=== PATIENT | male | born 1985 | race Caucasian/White ===

== ENCOUNTER 2020-11-14 23:15 | Inpatient (IN) | payer MEDICAID, SELFPAY ==
[2020-11-14 23:16] VITALS: BP 153/98; PULSE 108; RESP 18; TEMP 35.9; O2SAT 99; BMI 36.3
[2020-11-15 01:04] LABS: AST(SGOT) 11 U/L (15-37); Alanine Aminotransfer ALT/SGPT 18 U/L (16-61); Albumin, Serum 3.4 g/dL (3.2-5.0); Alkaline Phosphatase 104 U/L (45-117); Anion Gap 4 (5-15); BUN 12 mg/dL (7-18); BUN/Creat Ratio 14.8 RATIO (10-20); Calcium,Total 8.8 mg/dL (8.5-10.1); Chloride 109 mmol/L (98-107); Creatinine, Serum 0.81 mg/dL (0.70-1.30); EST Glomerular Filtration Rate 114 mL/min (>60); Est Glom Filt Rate - Afr Amer 137 mL/min (>60); Estimated Creatinine Clearance 145.17 ml/min; Globulin 3.5 g/dL (2.2-4.2); Glucose 109 mg/dL (74-106); Potassium 3.7 mmol/L (3.5-5.1); Protein, Total 6.9 g/dL (6.4-8.2); Sodium Level 139 mmol/L (136-145)
[2020-11-15 01:06] LABS: Amphetamine Urine VISTA POSITIVE (<1000 ng/mL); Barbiturate Urine VISTA NEGATIVE (< 200 ng/mL); Benzodiazepine Urine VISTA NEGATIVE (< 200 ng/mL); Cocaine Urine VISTA NEGATIVE (< 300 ng/mL); Ecstacy Urine VISTA NEGATIVE (< 500 ng/mL); Methadone Urine VISTA NEGATIVE (< 300 ng/mL); PCP Urine VISTA NEGATIVE (< 25 ng/mL); THC Urine VISTA POSITIVE (< 50 ng/mL); Vista UDS pH Range 7
--- NOTE | 2020-11-15 01:09 | ED.DCSUM_ITS ---
- ER Visit Summary Date of Service: 11/15/20 Chief Complaint: Requesting detox History of Present Illness: The patient is a 35 M presenting requesting detox. Patient uses fentanyl and methamphetamine. His last fentanyl use was 2 hours ago. He states he uses 2 to 3 g/day. He also uses methamphetamine last use 1 hour ago. He uses 3.5 g/day. He states he injects, snorts, and ingests these drugs. He has not been through detox in the past. He denies alcohol use. He also states that he does have suicidal and homicidal ideation without plan. Physical Examination: Vitals are stable. Patient is afebrile. Alert no acute distress. HEENT exam is unremarkable. Neck is supple. Lungs are clear and equal bilaterally. Heart is regular tachycardic Abdomen is soft nontender nondistended. Extremities are unremarkable. Skin is warm and dry. No focal neurologic deficit. Remainder of exam is unremarkable. Emergency Department Course and Treatment: Chemistries are unremarkable. Tox positive for amphetamine and cannabinoids. Alcohol negative. Will discuss with hospitalist for admission. Disposition: Admission Impression: Polysubstance abuse This note was generated with [employer] dictation software. It may contain incorrect words, spelling, and punctuation that were not noted in review of the chart prior to signing ED Disposition - Plan for ED Patient: Referrals: Arianna Segura PA [Primary Care Provider] -
--- NOTE | 2020-11-15 01:34 | PCM.HP.STD ---
Problem List (1) Acute opioid withdrawal syndrome Status: Acute (2) Methamphetamine intoxication Status: Acute (3) Opioid use disorder, severe, dependence Status: Chronic (4) Marijuana use, episodic Status: Chronic (5) Depression Status: Chronic History of Present Illness Date of Admission: 11/15/20 Chief Complaint: Polysubstance use, opioid withdrawal The patient is a 35 year old M with history of polysubstance use and dependence came to ER for detoxification. Patient uses 1 to 2 g of IV fentanyl and 2 to 3 g of methamphetamine by snorting, smoking and IV use. Patient was also heavily dependent on Percocet, heroine, crack cocaine, Xanax in the past. He started using opioids at the age of 13. [] Currently, patient having symptoms of withdrawal including tremors, shakiness anxiety attack. Patient also having auditory hallucination but denies visual or tactile sensation. Denies recent seizure. Patient also had episode of severe depression before coming with feeling of guilt and worthlessness about 3 hours before admission. He does not have suicidal plan. He had suicidal attempt about 5 to 6 years ago with overusing of IV heroin. Denies prior history of endocarditis, osteomyelitis, deep infection or abscess. Denies history of chronic hepatitis B, chronic otitis C, HIV or STIs. Past Medical History Past Medical History (Chronic Problems): Chronic Problems Opioid use disorder, severe, dependence (Chronic) Marijuana use, episodic (Chronic) Depression (Chronic) Allergies No Known Allergies Allergy (Verified 11/14/20 23:16) Home Medications: Ambulatory Orders Medication Instructions Recorded NK 11/14/20 Smoking Status: Current every day smoker Review of Systems Constitutional: Reports: Fever HEENT: Denies: Head Aches, Sinus Congestion, Sinus Drainage Cardiovascular: Denies: Chest Pain, Palpitations Respiratory: Denies: Cough, Shortness of breath at rest, Sputum production Gastrointestinal: Denies: Abdominal Pain, Nausea, Vomiting Genitourinary: Denies: Dysuria Musculoskeletal: Reports: Joint Pain, Leg Pain, Muscle pain. Denies: Joint Tenderness Skin: Denies: Rash, Wounds Neurological: Denies: Numbness, Tingling, Focal weakness Psychiatric: Denies: Anxiety, Depression, Homicidal Ideations, Suicidal Ideations Hematologic/ Lymphatic: Denies: Easy Bruising, Easy Bleeding VTE Information - Inpt Only VTE Present on Admission: No VTE Mechan Device Prophylaxis: None Reason prophylaxis not ordered:: Procedure Not Indicated Objective: General: Alert, Oriented x3, Cooperative, restless HEENT: Atraumatic, PERRLA, EOMI, Normocephalic Oral: No Gingival or Mucosal Lesions/ Ulcerations Neck: Supple, No JVD, Negative Carotid Bruits Lungs: Air entry equal in bilateral lung bases. No crepitation/rhonchi Cardiovascular: Regular rate, Regular Rhythm, Normal S1, Normal S2, No murmurs Abdomen: Bowel Sounds Present, Soft, Non Tender, Non-Distended : No renal angle tenderness. No suprapubic tenderness. Extremities: Needle jame over bilateral antecubital regions. No ankle edema, Capillary Refill Less than 3 Seconds Skin: No rashes, No breakdown Musculoskeletal: No Tenderness to Palpation of Joints or Extremities Neurological: Cranial nerves II-XII grossly intact, Deep Tendon Reflexes 2+/4 and Symmetrical, Neuro grossly intact Psych/Mental Status: Restless, ecstasy - Physical Exam Vitals/I&O's: Vital Signs Temp Pulse Resp BP Pulse Ox 96.7 F L 108 H 18 153/98 H 99 11/14/20 23:16 11/14/20 23:16 11/14/20 23:16 11/14/20 23:16 11/14/20 23:16 Oxygen Delivery Method Room Air Weight: 282 lb 9.6 oz Body Mass Index (BMI) 36.3 Laboratory Results 11/15/20 00:05: Sodium 139, Potassium 3.7, Chloride 109 H, Carbon Dioxide 26.0, Anion Gap 4 L, BUN 12, Creatinine 0.81, Estim Creat Clear Calc 145.17, Est GFR (MDRD) Af Amer 137, Est GFR (MDRD) Non-Af 114, BUN/Creatinine Ratio 14.8, Glucose 109 H, Calcium 8.8, Total Bilirubin 0.40, AST 11 L, ALT 18, Alkaline Phosphatase 104, Total Protein 6.9, Albumin 3.4, Globulin 3.5, Albumin/Globulin Ratio 1.0 11/15/20 00:05: Ethyl Alcohol 5.0 11/15/20 00:05: Urine Opiates Screen NEGATIVE, Urine Methadone Screen NEGATIVE, Ur Barbiturates Screen NEGATIVE, Ur Phencyclidine Scrn NEGATIVE, Ur Amphetamines Screen POSITIVE H, U Methamphetamin-MDMA NEGATIVE, U Benzodiazepines Scrn NEGATIVE, Urine Cocaine Screen NEGATIVE, U Cannabinoids Screen POSITIVE H, Ur Drug Screen Comment Assessment/Plan All Active Problems Acute opioid withdrawal syndrome (Acute) Methamphetamine intoxication (Acute) 1. Acute opioid withdrawal syndrome with history of chronic opioid use and dependence and tolerance: Patient is being admitted on [facility] floor. On buprenorphine order set including other medications ibuprofen, clonidine, dicyclomine, gabapentin, hydroxyzine, methocarbamol and trazodone as needed. 2. Methamphetamine intoxication: Supportive medications as mentioned above 3. Marijuana use 4. Past history of benzodiazepines, Xanax, crack cocaine 5. Chronic smoker, cigarette with nicotine dependence: On nicotine patch. VTE prophylaxis: Low risk early ambulation encouraged. Inpatient E&M: 75834 Init Hosp L3
[2020-11-15 02:17] VITALS: BP 141/87; PULSE 89; RESP 18; TEMP 35.9; O2SAT 99
[2020-11-15 02:30] VITALS: BMI 35.9
[2020-11-15 02:36] VITALS: BP 122/82; PULSE 67; RESP 16; TEMP 36.3; O2SAT 100
[2020-11-15 02:39] VITALS: BMI 35.9
[2020-11-15 03:56] LABS: Absolute Lymphocyte Count 2.28 X10^3/uL (0.83-4.51); Absolute Neutrophil Count 4.7 X10^3/uL (2.0-7.7); Basophil# 0.03 X10^3/uL; Basophil% 0.4 % (0-1); Eosinophil# 0.34 X10^3/uL; Eosinophils% 4.3 % (0-5); Hematocrit 42.9 % (40-54); Hemoglobin 14.6 g/dL (13.0-16.5); Lymphocyte # 2.28 X10^3/ul (4.0); Lymphocyte % 28.7 % (19-41); Mean Corpuscular Volume 85.1 fL (80-94); Monocyte# 0.56 X10^3/uL; NRBC Flagged by Analyzer 0 % (0-5); Neutrophil # 4.73 X10^3/uL (2.7-7.7); Neutrophil % 59.5 % (47-70); Platelet Count 220 K/mm3 (150-450); RBC Distribution Width CV 13.7 % (11.6-14.6); RBC Distribution Width SD 42.1 fl (35.1-43.9); Red Blood Count 5.04 M/mm3 (4.6-6.2)
[2020-11-15] MEDS: Lactated Ringers 1,000 ML 125 ML IV (03:56)
[2020-11-15 04:07] LABS: Differential Indicated SCAN CRITERIA MET
[2020-11-15 04:10] LABS: International Normalized Ratio 1.1; Prothrombin Time (Protime)PT. 13.9 SECONDS (11.7-14.9)
[2020-11-15 05:45] LABS: Mucous, Urine 0 SEEN /hpf (<or=2+); Squamous Epithelial Cells - UA 0 SEEN /hpf (0-5); White Blood Cells 0 SEEN /hpf (0-5)
[2020-11-15 05:46] LABS: Color, Urine Yellow (Yellow); Glucose, Dipstick Normal (Normal); Ketone-Dipstick Negative (Negative); Leukocyte Esterase-Dipstick Negative /ul (Negative); Nitrite-Dipstick Negative (Negative); Occult Blood-Urine Negative /ul (Negative); Protein-Dipstick 15 mg/dl (Negative); Specific Gravity, Urine 1.015 (1.002-1.030); Urine Bilirubin Dipstick Negative (Negative); Urine Clarity Turbid (Clear); Urine Urobilinogen 4 mg/dl (Normal)
[2020-11-15 06:23] LABS: Bacteria 1+ /hpf (None Seen)
[2020-11-15 06:25] LABS: Amorphous Sediment 4+; Red Blood Cells-Urine 0-5 SEEN /hpf (0-5)
[2020-11-15 06:29] VITALS: BP 132/82; PULSE 83; RESP 18; TEMP 36.6; O2SAT 97
[2020-11-15] MEDS: Dicyclomine 10 MG Capsule 20 MG PO (06:33)
[2020-11-15] MEDS: Methocarbamol 750 MG Tablet 1500 MG PO ×3 (06:33→22:04)
[2020-11-15] MEDS: Ibuprofen 600 MG Tablet PO ×2 (06:34→14:24)
[2020-11-15] MEDS: cloNIDine HCl 0.1 MG Tablet PO (06:34)
[2020-11-15] MEDS: hydrOXYzine PAM 25 MG Capsule 50 MG PO ×3 (06:34→22:04)
[2020-11-15] MEDS: Buprenorphine HCl 2 MG TAB.SUBL SL ×3 (06:36→22:04)
--- NOTE | 2020-11-15 07:44 | PN_ITS ---
Patient Problems: Active and Suspected Problems Acute opioid withdrawal syndrome (Acute) Methamphetamine intoxication (Acute) Subjective: Patient seen and examined. He was admitted for acute reported withdrawal and is on opioid withdrawal protocol with buprenorphine. He has no complaints today. Review of symptoms otherwise negative. He has remained hemodynamically stable. Vitals/I&O's: Vital Signs Temp Pulse Resp BP Pulse Ox 97.8 F 83 18 132/82 H 97 11/15/20 06:29 11/15/20 06:29 11/15/20 06:29 11/15/20 06:29 11/15/20 06:29 Oxygen Delivery Method Room Air Weight: 280 lb Body Mass Index (BMI) 35.9 General: Alert, Oriented x3, Cooperative HEENT: Atraumatic, PERRLA, EOMI, Normocephalic Neck: Supple, No JVD, Negative Carotid Bruits Lungs: Clear to auscultation, Normal air movement Cardiovascular: Regular rate, No murmurs Abdomen: Bowel Sounds Present, Soft, Non Tender Extremities: No edema, Capillary Refill Less than 3 Seconds Skin: No rashes, No breakdown Musculoskeletal: No Tenderness to Palpation of Joints or Extremities Neurological: Cranial nerves II-XII grossly intact Psych/Mental Status: Normal Affect, Appropriate Laboratory Results 11/15/20 00:00: Urine Color Yellow, Urine Clarity Turbid, Urine pH 8.0, Ur Specific [place] 1.015, Urine Protein 15 H, Urine Glucose (UA) Normal, Urine Ketones Negative, Urine Occult Blood Negative, Urine Nitrite Negative, Urine Bilirubin Negative, Urine Urobilinogen 4 H, Ur Leukocyte Esterase Negative, Urine RBC 0-5 SEEN, Urine WBC 0 SEEN, Ur Squamous Epith Cells 0 SEEN, Amorphous Sediment 4+, Urine Bacteria 1+, Urine Mucus 0 SEEN 11/15/20 00:05: Sodium 139, Potassium 3.7, Chloride 109 H, Carbon Dioxide 26.0, Anion Gap 4 L, BUN 12, Creatinine 0.81, Estim Creat Clear Calc 145.17, Est GFR (MDRD) Af Amer 137, Est GFR (MDRD) Non-Af 114, BUN/Creatinine Ratio 14.8, Glucose 109 H, Calcium 8.8, Total Bilirubin 0.40, AST 11 L, ALT 18, Alkaline Phosphatase 104, Total Protein 6.9, Albumin 3.4, Globulin 3.5, Albumin/Globulin Ratio 1.0 11/15/20 00:05: Ethyl Alcohol 5.0 11/15/20 00:05: Urine Opiates Screen NEGATIVE, Urine Methadone Screen NEGATIVE, Ur Barbiturates Screen NEGATIVE, Ur Phencyclidine Scrn NEGATIVE, Ur Amphetamines Screen POSITIVE H, U Methamphetamin-MDMA NEGATIVE, U Benzodiazepines Scrn NEGATIVE, Urine Cocaine Screen NEGATIVE, U Cannabinoids Screen POSITIVE H, Ur Drug Screen Comment 11/15/20 03:45: WBC 8.0, RBC 5.04, Hgb 14.6, Hct 42.9, MCV 85.1, MCH 29.0, MCHC 34.0, RDW Std Deviation 42.1, RDW Coeff of Camille 13.7, Plt Count 220, MPV 10.0, Immature Gran % (Auto) 0.100, Neut % (Auto) 59.5, Lymph % (Auto) 28.7, [place] % (Auto) 7.0, Eos % (Auto) 4.3, Baso % (Auto) 0.4, Absolute Neuts (auto) 4.7, Absolute Lymphs (auto) 2.28, Nucleated RBC % 0 11/15/20 03:45: PT 13.9, INR 1.1 Current Medications Acetaminophen (Acetaminophen 500 Mg Tablet) 500 mg PO Q4H PRN PRN PRN Reason: Temp > 100.4 F Al Hydroxide/Mg Hydroxide (Mag Hydrox/Al Hydrox/Simeth 30 Ml Udc) 30 ml PO Q6H PRN PRN PRN Reason: dyspesia Bisacodyl (Bisacodyl 10 Mg Suppository) 10 mg RC DAILY PRN PRN Reason: Constipation Buprenorphine HCl (Buprenorphine Hcl 2 Mg Tab.Subl) 4 mg SL Q8H INOCENTE; Taper Stop: 11/18/20 06:29 Last Admin: 11/15/20 06:36 Dose: 4 mg Documented by: Clonidine (Clonidine Hcl 0.1 Mg Tablet) 0.1 mg PO Q8H PRN PRN PRN Reason: RESTLESSNESS Last Admin: 11/15/20 06:34 Dose: 0.1 mg Documented by: Dicyclomine HCl (Dicyclomine 10 Mg Capsule) 20 mg PO Q6H PRN PRN PRN Reason: Abdominal Discomfort Last Admin: 11/15/20 06:33 Dose: 20 mg Documented by: Gabapentin (Gabapentin 300 Mg Capsule) 300 mg PO Q8H PRN PRN PRN Reason: moderate to severe anxiety Hydroxyzine Pamoate (Hydroxyzine Jeanna 25 Mg Capsule) 50 mg PO Q6H PRN PRN PRN Reason: mild anxiety Last Admin: 11/15/20 06:34 Dose: 50 mg Documented by: Sodium Chloride () 250 mls @ 15 mls/hr IV .[id number] PRN PRN Reason: Saline Flush Sodium Chloride () 250 mls @ 15 mls/hr IV .[id number] PRN PRN Reason: Additional IVPB Infusion Lactated Ringer's () 1,000 mls @ 125 mls/hr IV .Q8H INOCENTE Stop: 11/15/20 11:11 Last Admin: 11/15/20 03:56 Dose: 125 mls/hr Documented by: Ibuprofen (Ibuprofen 600 Mg Tablet) 600 mg PO Q8H PRN PRN PRN Reason: PAIN Last Admin: 11/15/20 06:34 Dose: 600 mg Documented by: Loperamide HCl (Loperamide 2 Mg Capsule) 2 mg PO Q4H PRN PRN PRN Reason: LOOSE STOOLS Methocarbamol (Methocarbamol 750 Mg Tablet) 1,500 mg PO Q6H PRN PRN PRN Reason: MUSCLE SPASM Last Admin: 11/15/20 06:33 Dose: 1,500 mg Documented by: Nicotine (Nicotine 21 Mg Patch) 21 mg TD DAILY [facility] Ondansetron HCl (Ondansetron 8 Mg Tablet) 8 mg PO Q8H PRN PRN PRN Reason: NAUSEA Senna (Senna Tablet) 2 tablet PO QHS PRN PRN PRN Reason: Constipation Sodium Chloride (0.9% Saline Lock 10 Ml Syringe) 10 - 40 ml IV UD PRN PRN Reason: SALINE FLUSH Trazodone HCl (Trazodone 100 Mg Tablet) 100 mg PO QHS PRN PRN PRN Reason: INSOMNIA STROKE Vital Signs/Narrative: Vital Signs Temp Pulse Resp BP Pulse Ox 11/15/20 06:29 97.8 F 83 18 132/82 H 97 Medical Necessity - Tobacco Use Smoking Status: Current every day smoker Tobacco Use: Cigarettes, - Assessment/Plan All Active Problems Acute opioid withdrawal syndrome (Acute) Methamphetamine intoxication (Acute) #Acute opioid withdrawal * on acute opiate withdrawal protocol with buprenorphine * monitor CINA score * #Nicotine dependence: counseled to quit. on nicotine patch 21mg daily DVT prophylaxis: low risk, encourage ambulation Inpatient E&M: 51014 Subs Hosp L2
--- NOTE | 2020-11-15 09:26 | CASEMGMT ---
JOSELINE called the pt navigator from [facility], she will come see pt this weekend. JAYRO Phan
[2020-11-15 09:59] VITALS: BP 118/82; PULSE 62; RESP 16; TEMP 36.5; O2SAT 97
[2020-11-15 15:05] VITALS: BP 107/72; PULSE 52; RESP 16; TEMP 36.9; O2SAT 98
[2020-11-15 20:00] VITALS: BP 119/72; PULSE 64; RESP 18; TEMP 36.9; O2SAT 99
[2020-11-15] MEDS: traZODone 100 MG Tablet PO (22:04)
[2020-11-16] MEDS: Ibuprofen 600 MG Tablet PO ×3 (03:20→22:17)
[2020-11-16] MEDS: cloNIDine HCl 0.1 MG Tablet PO (03:20)
[2020-11-16] MEDS: Gabapentin 300 MG Capsule PO (03:20)
[2020-11-16 03:23] VITALS: BP 111/74; PULSE 70; RESP 16; TEMP 36.6; O2SAT 96
[2020-11-16] MEDS: Buprenorphine HCl 2 MG TAB.SUBL SL ×3 (06:23→22:18)
[2020-11-16 08:42] VITALS: PULSE 70
--- NOTE | 2020-11-16 09:30 | PN_ITS ---
Patient Problems: Active and Suspected Problems Acute opioid withdrawal syndrome (Acute) Methamphetamine intoxication (Acute) Subjective: Patient seen and examined. He had no complaints and had an uneventful night. Review of systems otherwise negative. Vitals/I&O's: Vital Signs Temp Pulse Resp BP Pulse Ox 97.9 F 70 16 111/74 96 11/16/20 03:23 11/16/20 08:42 11/16/20 03:23 11/16/20 03:23 11/16/20 03:23 Oxygen Delivery Method Room Air Weight: 280 lb 0.005 oz Body Mass Index (BMI) 35.9 Intake and Output for Last 24 Hours 11/14/20 11/15/20 11/17/20 23:59 23:59 00:59 Intake Total 352.08 / 952.08 600 / 600 Balance 352.08 / 952.08 600 / 600 General: Alert, Oriented x3, Cooperative HEENT: Atraumatic, PERRLA, EOMI, Normocephalic Neck: Supple, No JVD, Negative Carotid Bruits Lungs: Clear to auscultation, Normal air movement Cardiovascular: Regular rate, No murmurs Abdomen: Bowel Sounds Present, Soft, Non Tender Extremities: No edema, Capillary Refill Less than 3 Seconds Skin: No rashes, No breakdown Musculoskeletal: No Tenderness to Palpation of Joints or Extremities Neurological: Cranial nerves II-XII grossly intact Psych/Mental Status: Normal Affect, Appropriate Current Medications Acetaminophen (Acetaminophen 500 Mg Tablet) 500 mg PO Q4H PRN PRN PRN Reason: Temp > 100.4 F Al Hydroxide/Mg Hydroxide (Mag Hydrox/Al Hydrox/Simeth 30 Ml Udc) 30 ml PO Q6H PRN PRN PRN Reason: dyspesia Bisacodyl (Bisacodyl 10 Mg Suppository) 10 mg RC DAILY PRN PRN Reason: Constipation Buprenorphine HCl (Buprenorphine Hcl 2 Mg Tab.Subl) 2 mg SL Q8H INOCENTE; Taper Stop: 11/18/20 06:29 Last Admin: 11/16/20 06:23 Dose: 2 mg Documented by: Clonidine (Clonidine Hcl 0.1 Mg Tablet) 0.1 mg PO Q8H PRN PRN PRN Reason: RESTLESSNESS Last Admin: 11/16/20 03:20 Dose: 0.1 mg Documented by: Dicyclomine HCl (Dicyclomine 10 Mg Capsule) 20 mg PO Q6H PRN PRN PRN Reason: Abdominal Discomfort Last Admin: 11/15/20 06:33 Dose: 20 mg Documented by: Gabapentin (Gabapentin 300 Mg Capsule) 300 mg PO Q8H PRN PRN PRN Reason: moderate to severe anxiety Last Admin: 11/16/20 03:20 Dose: 300 mg Documented by: Hydroxyzine Pamoate (Hydroxyzine Jeanna 25 Mg Capsule) 50 mg PO Q6H PRN PRN PRN Reason: mild anxiety Last Admin: 11/15/20 22:04 Dose: 50 mg Documented by: Sodium Chloride () 250 mls @ 15 mls/hr IV .[id number] PRN PRN Reason: Saline Flush Sodium Chloride () 250 mls @ 15 mls/hr IV .[id number] PRN PRN Reason: Additional IVPB Infusion Ibuprofen (Ibuprofen 600 Mg Tablet) 600 mg PO Q8H PRN PRN PRN Reason: PAIN Last Admin: 11/16/20 03:20 Dose: 600 mg Documented by: Loperamide HCl (Loperamide 2 Mg Capsule) 2 mg PO Q4H PRN PRN PRN Reason: LOOSE STOOLS Methocarbamol (Methocarbamol 750 Mg Tablet) 1,500 mg PO Q6H PRN PRN PRN Reason: MUSCLE SPASM Last Admin: 11/15/20 22:04 Dose: 1,500 mg Documented by: Nicotine (Nicotine 21 Mg Patch) 21 mg TD DAILY INOCENTE Last Admin: 11/15/20 18:33 Dose: 21 mg Documented by: Ondansetron HCl (Ondansetron 8 Mg Tablet) 8 mg PO Q8H PRN PRN PRN Reason: NAUSEA Senna (Senna Tablet) 2 tablet PO QHS PRN PRN PRN Reason: Constipation Sodium Chloride (0.9% Saline Lock 10 Ml Syringe) 10 - 40 ml IV UD PRN PRN Reason: SALINE FLUSH Trazodone HCl (Trazodone 100 Mg Tablet) 100 mg PO QHS PRN PRN PRN Reason: INSOMNIA Last Admin: 11/15/20 22:04 Dose: 100 mg Documented by: STROKE Vital Signs/Narrative: Vital Signs Pulse 11/16/20 08:42 70 Medical Necessity - Tobacco Use Smoking Status: Current every day smoker Tobacco Use: Cigarettes, - Assessment/Plan All Active Problems Acute opioid withdrawal syndrome (Acute) Methamphetamine intoxication (Acute) #Acute opioid withdrawal * on acute opiate withdrawal protocol with buprenorphine * monitor CINA score * #Nicotine dependence: counseled to quit. on nicotine patch 21mg daily DVT prophylaxis: low risk, encourage ambulation Inpatient E&M: 11958 Subs Hosp L2
[2020-11-16 11:45] VITALS: BP 92/46; PULSE 77; RESP 16; TEMP 36.9; O2SAT 99
[2020-11-16] MEDS: Senna Tablet 2 TABLET PO (18:13)
[2020-11-16 18:15] VITALS: BP 114/62; PULSE 73; RESP 16; TEMP 36.5; O2SAT 99
[2020-11-16] MEDS: traZODone 100 MG Tablet PO (22:17)
[2020-11-16] MEDS: hydrOXYzine PAM 25 MG Capsule 50 MG PO (23:34)
[2020-11-16 23:44] VITALS: BP 126/73; PULSE 81; RESP 16; TEMP 36.6; O2SAT 97
[2020-11-17] MEDS: Senna Tablet 2 TABLET PO (02:17)
[2020-11-17 05:45] VITALS: BP 112/62; PULSE 66; RESP 16; TEMP 37; O2SAT 99
[2020-11-17] MEDS: Buprenorphine HCl 2 MG TAB.SUBL SL (05:54)
--- NOTE | 2020-11-17 08:49 | DCINST_ITS ---
- Discharge Diagnoses Current Active Problems: Current Active and Chronic Problems Acute opioid withdrawal syndrome (Acute) Methamphetamine intoxication (Acute) Opioid use disorder, severe, dependence (Chronic) Marijuana use, episodic (Chronic) Depression (Chronic) You will use the following diet at home:: Regular Your food should be the consistency of: Regular Discharge Activity: Return to Normal Activity Weight Bearing Status: Full weight bearing Call your doctor if you observe: Fever of 101 or Higher, Shortness of breath, Dizziness, Fainting spells, Chest pain, Increased palpitations (irregular heartbeat), Uncontrolled pain Additional Instructions: Please follow-up with the [facility] program. Allergies/Adverse Reactions: Allergies No Known Allergies Allergy (Verified 11/14/20 23:16) Medications to take at Discharge NK 11/14/20 Primary Care Physician: Arianna Segura PA [Primary Care Provider] - Please follow up with your Primary Care Physician in: 2-4 weeks. Test Results: Test results from this visit will be discussed in further detail at your follow- up appointment, if applicable.
[2020-11-17 08:59] VITALS: BP 109/46; PULSE 61; RESP 18; TEMP 36.8; O2SAT 98
[2020-11-17] MEDS: Magnesium Hydroxide 30 ML UDC PO (09:01)
[2020-11-17] MEDS: Methocarbamol 750 MG Tablet 1500 MG PO (09:01)
[2020-11-17] MEDS: hydrOXYzine PAM 25 MG Capsule 50 MG PO (09:01)
[2020-11-17] MEDS: Ibuprofen 600 MG Tablet PO (09:01)
[2020-11-17] MEDS: cloNIDine HCl 0.1 MG Tablet PO (09:01)
[2020-11-17] MEDS: Dicyclomine 10 MG Capsule 20 MG PO (09:01)
--- NOTE | 2020-11-17 10:42 | PHA.DC.MR ---
Pharmacy Service has performed discharge medication reconciliation for this patient. The patient's discharge medication list was reviewed for discrepancies and discrepancies were resolved. Home Medications NK 11/14/20
--- NOTE | 2020-11-17 12:00 | CASEMGMT ---
Social Work Note SW received call from Jean at [facility] stating she will check in with pt once she arrives to [facility]. Jean states she will be in to [facility] later this afternoon. SW in to speak with pt. SW updated pt that Jean from [facility] will be in to see pt today to confirm discharge plans. SW informed pt that [facility] is the contracted services that see's the [facility] pt's while they are at [facility]. SW informed pt that this worker is not sure what time Jean will be in as she only told this worker later this afternoon. Pt states understanding, kept apologizing. SW to speak with Jean once she arrives to [facility]. Vidhya Hutchinson WEB ADMINISTRATOR, CONDUIT INSTALLER
--- NOTE | 2020-11-17 12:02 | NURSING ---
Vidhya SW now in talking with pt. pt agitated and requesting to speak with [facility] immediately.
--- NOTE | 2020-11-17 13:20 | DS.PCM_ITS ---
Discharge Date and Diagnosis - Problem List Patient Problems: Active and Suspected Problems Acute opioid withdrawal syndrome (Acute) Date of Admission: 11/15/20 Date of Discharge: 11/17/20 - Primary Discharge Diagnosis Acute Problems: Active Problems #1 acute opioid withdrawal admitted for medical stabilization. #2 methamphetamine use. - Secondary Discharge Diagnosis Chronic Problems: Chronic Problems Opioid use disorder, severe, dependence (Chronic) Marijuana use, episodic (Chronic) Depression (Chronic) Hospital Course and Treatment Operations: None Procedures: None Summary of Care Provided: Patient seen and examined on the day of discharge and appeared to be stable to be discharged home and follow-up with [facility]. Symptoms has been improving. His vital signs were stable. The patient is a 35 year old M presented to the emergency room requesting admission for acute opiate withdrawal for medical stabilization. Patient has been using fentanyl and methamphetamines. He was admitted to [facility] floor and started on acute opioid withdrawal protocol with tapering Subutex, as needed Bentyl, methocarbamol, Vistaril, Zofran, Imodium, Catapres and trazodone. His routine blood work was unremarkable. LFT was normal. Urine drug screen was positive for amphetamines and cannabinoids. Blood alcohol level was 5. With above-mentioned treatment, patient symptoms improved. He was evaluated by [facility] program and plan to follow-up with them as outpatient. Patient discharged home in a stable medical condition, plan to follow-up with [facility] program as scheduled, recommended from PCP in 2 to 4 weeks. Patient Problems: Active and Suspected Problems Acute opioid withdrawal syndrome (Acute) - Physical Exam Vitals/I&O's: Vital Signs Temp Pulse Resp BP Pulse Ox 98.3 F 61 18 109/46 L 98 11/17/20 08:59 11/17/20 08:59 11/17/20 08:59 11/17/20 08:59 11/17/20 08:59 Oxygen Delivery Method Room Air Weight: 280 lb 0.005 oz Body Mass Index (BMI) 35.9 Intake and Output for Last 24 Hours 11/15/20 11/16/20 11/17/20 22:59 23:59 23:59 Intake Total Balance General: Alert, Oriented x3, Cooperative, No apparent distress HEENT: Atraumatic, PERRLA, EOMI, Normocephalic Oral: Moist Mucosa, No Gingival or Mucosal Lesions/ Ulcerations Neck: Supple, No JVD, Negative Carotid Bruits, Trachea Midline, Thyroid Normal Size and Texture Lungs: Clear to auscultation, Normal air movement, No rhonchi, No wheeze, No rales Cardiovascular: Regular rate, Regular Rhythm, Normal S1, Normal S2, PMI Normal Abdomen: Bowel Sounds Present, Soft, Non Tender, Non-Distended, No Hepato- splenomegaly Extremities: No clubbing, No cyanosis, No edema Skin: No rashes, No breakdown Lymphatic: No Cervical, Supraclavicular, or Inguinal Adenopathy Neurological: Cranial nerves II-XII grossly intact, Neuro grossly intact Psych/Mental Status: Normal Affect, Appropriate Current Medications Acetaminophen (Acetaminophen 500 Mg Tablet) 500 mg PO Q4H PRN PRN PRN Reason: Temp > 100.4 F Al Hydroxide/Mg Hydroxide (Mag Hydrox/Al Hydrox/Simeth 30 Ml Udc) 30 ml PO Q6H PRN PRN PRN Reason: dyspesia Bisacodyl (Bisacodyl 10 Mg Suppository) 10 mg RC DAILY PRN PRN Reason: Constipation Buprenorphine HCl (Buprenorphine Hcl 2 Mg Tab.Subl) 2 mg SL Q12H INOCENTE; Taper Stop: 11/18/20 06:29 Last Admin: 11/17/20 05:54 Dose: 2 mg Documented by: Clonidine (Clonidine Hcl 0.1 Mg Tablet) 0.1 mg PO Q8H PRN PRN PRN Reason: RESTLESSNESS Last Admin: 11/17/20 09:01 Dose: 0.1 mg Documented by: Dicyclomine HCl (Dicyclomine 10 Mg Capsule) 20 mg PO Q6H PRN PRN PRN Reason: Abdominal Discomfort Last Admin: 11/17/20 09:01 Dose: 20 mg Documented by: Gabapentin (Gabapentin 300 Mg Capsule) 300 mg PO Q8H PRN PRN PRN Reason: moderate to severe anxiety Last Admin: 11/16/20 03:20 Dose: 300 mg Documented by: Hydroxyzine Pamoate (Hydroxyzine Jeanna 25 Mg Capsule) 50 mg PO Q6H PRN PRN PRN Reason: mild anxiety Last Admin: 11/17/20 09:01 Dose: 50 mg Documented by: Sodium Chloride () 250 mls @ 15 mls/hr IV .[id number] PRN PRN Reason: Saline Flush Sodium Chloride () 250 mls @ 15 mls/hr IV .[id number] PRN PRN Reason: Additional IVPB Infusion Ibuprofen (Ibuprofen 600 Mg Tablet) 600 mg PO Q8H PRN PRN PRN Reason: PAIN Last Admin: 11/17/20 09:01 Dose: 600 mg Documented by: Loperamide HCl (Loperamide 2 Mg Capsule) 2 mg PO Q4H PRN PRN PRN Reason: LOOSE STOOLS Methocarbamol (Methocarbamol 750 Mg Tablet) 1,500 mg PO Q6H PRN PRN PRN Reason: MUSCLE SPASM Last Admin: 11/17/20 09:01 Dose: 1,500 mg Documented by: Nicotine (Nicotine 21 Mg Patch) 21 mg TD DAILY INOCENTE Last Admin: 11/17/20 09:01 Dose: Not Given Documented by: Ondansetron HCl (Ondansetron 8 Mg Tablet) 8 mg PO Q8H PRN PRN PRN Reason: NAUSEA Senna (Senna Tablet) 2 tablet PO QHS PRN PRN PRN Reason: Constipation Last Admin: 11/17/20 02:17 Dose: 2 tablet Documented by: Sodium Chloride (0.9% Saline Lock 10 Ml Syringe) 10 - 40 ml IV UD PRN PRN Reason: SALINE FLUSH Trazodone HCl (Trazodone 100 Mg Tablet) 100 mg PO QHS PRN PRN PRN Reason: INSOMNIA Last Admin: 11/16/20 22:17 Dose: 100 mg Documented by: Discharge Activity: Return to Normal Activity Weight Bearing Status: Full weight bearing Call your doctor if you observe: Fever of 101 or Higher, Shortness of breath, Dizziness, Fainting spells, Chest pain, Increased palpitations (irregular heartbeat), Uncontrolled pain Home Medications: Medications to take at Discharge NK 11/14/20 Primary Care Physician: Arianna Segura, PA [Primary Care Provider] - Please follow up with your Primary Care Physician in: 2-4 weeks. Disposition: Home Minutes spent on discharge:: 27 Patient Condition:: Stable Medical Necessity - Tobacco Use Smoking Status: Current every day smoker Tobacco Use: Cigarettes, - Meaningful Use Info Meaningful Use Diagnoses (Choose all that apply): None applicable Inpatient E&M: 82184 [facility]
== END 2020-11-17 14:08 | disposition home or self-care (01) | DRG 773 ==
LOC: ED 11-15 00:56 → MS3 11-15 02:16
PROVIDERS: Admitting Provider Internal Medicine; Emergency Provider Emergency Medicine; PCP Physician Assistant Medical; Visit Provider Hospitalist
DX: F11.23 Opioid dependence with withdrawal (principal); R45.850 Homicidal ideations; R45.851 Suicidal ideations; F15.129 Other stimulant abuse with intoxication, unspecified; R44.0 Auditory hallucinations; F12.90 Cannabis use, unspecified, uncomplicated; F32.9 Major depressive disorder, single episode, unspecified; F17.210 Nicotine dependence, cigarettes, uncomplicated
CPT/HCPCS: 36415; 80053; 80307; 81001; 82077; 85025; 85610; 99283; 99406; J7120

== ENCOUNTER 2020-11-28 04:04 | Inpatient (IN) | payer MEDICAID, SELFPAY ==
[2020-11-28] VITALS (10 sets, daily range): BP systolic 102–128; BP diastolic 45–84; PULSE 57–97; RESP 12–18; TEMP 36.4–36.8; O2SAT 97–99; BMI 35.2; BMI 34.1; BMI 34.2
--- NOTE | 2020-11-28 04:22 | ED.VIS.GEN ---
History of Present Illness Chief Complaint: Substance Abuse Informant: Patient Narrative: She presents back to the emergency room this morning requesting admission for detox from meth and fentanyl. Patient was recently admitted here November 15 to the for the same. Plan at that time had been to go into residential treatment through [facility] at discharge. Apparently there was not a place available for him. Patient stated within 1 day of discharge she started using meth and fentanyl again. He has been in contact with [facility] and states they advised him to come back in today for admission and they should have a residential treatment facility for him to go to on Tuesday. Patient states that he has not shot up with his most recent drug use. Last use was approximately 2 hours prior to arrival. - Past Medical History (1) Anxiety Status: Chronic (2) Depression Status: Chronic Past Medical History - Allergies and Home Meds Allergies/Adverse Reactions: Allergies No Known Allergies Allergy (Verified 11/28/20 04:08) Primary Care Physician: Arianna Segura PA [Primary Care Provider] - Prior records reviewed: Yes Smoking Status: Current every day smoker Drugs: - - Fentanyl, methamphetamine Review of Systems General: Denies: Chills, Fever Eyes: Denies: Visual changes - bilaterally ENT: Denies: Bilateral ear pain Cardiovascular: Denies: Chest pain Respiratory: Denies: Dyspnea, Cough Gastrointestinal: Denies: Abdominal pain, Nausea, Vomiting, Diarrhea Genitourinary: Denies: Dysuria Musculoskeletal: Denies: Swelling, Extremity Pain Skin: Denies: Rash Neurological: Denies: Headache Hematologic: Denies: Easy bruising, Easy bleeding Allergy: Denies: Uticaria Physical Exam Vital Signs/Narrative: Vital Signs Temp Pulse Resp BP Pulse Ox 11/28/20 04:05 97.6 F L 96 18 128/84 H 99 Inital Vital Signs reviewed: Yes General: Well nourished, Well developed Head: Normocephalic ENT: Moist mucous membranes Neck: Supple Cardiovascular: Regular rate, Regular rhythm Respiratory: No distress, CTA bilaterally Abdomen: Soft, Nontender, Normal bowel sounds Extremities: Nontender Skin: Normal color Neurological: Alert, Oriented x3, Normal Strength, Normal Sensation Psychological: Normal affect Diagnostic/Tx/Re-eval Laboratory Results 11/28/20 11/28/20 11/28/20 04:15 04:30 04:30 Sodium 138 Potassium 3.5 Chloride 107 Carbon Dioxide 25.0 Anion Gap 6 BUN 10 Creatinine 1.07 Estim Creat Clear Calc 109.90 Est GFR (MDRD) Af Amer 100 Est GFR (MDRD) Non-Af 82 BUN/Creatinine Ratio 9.3 L Glucose 94 Calcium 8.7 Total Bilirubin 0.40 AST 10 L ALT 22 Alkaline Phosphatase 111 Total Protein 6.9 Albumin 3.3 Globulin 3.6 Albumin/Globulin Ratio 0.9 Urine Opiates Screen NEGATIVE Urine Methadone Screen NEGATIVE Ur Barbiturates Screen NEGATIVE Ur Phencyclidine Scrn NEGATIVE Ur Amphetamines Screen POSITIVE H U Methamphetamin-MDMA POSITIVE H U Benzodiazepines Scrn NEGATIVE Urine Cocaine Screen NEGATIVE U Cannabinoids Screen POSITIVE H Ur Drug Screen Comment Ethyl Alcohol 7.0 - Medical Decision Making Patient is agreed to the terms of the detox program. I will speak with hospitalist regarding admission. Patient reportedly has already been in contact with [facility] regarding placement in residential facility at time of discharge. ED Disposition - Plan for ED Patient: Disposition: Home or Assisted Living Diagnosis: Desire for detoxification Referrals: Arianna Segura, PA [Primary Care Provider] -
[2020-11-28 04:54] LABS: Amphetamine Urine VISTA POSITIVE (<1000 ng/mL); Barbiturate Urine VISTA NEGATIVE (< 200 ng/mL); Benzodiazepine Urine VISTA NEGATIVE (< 200 ng/mL); Cocaine Urine VISTA NEGATIVE (< 300 ng/mL); Ecstacy Urine VISTA POSITIVE (< 500 ng/mL); Methadone Urine VISTA NEGATIVE (< 300 ng/mL); PCP Urine VISTA NEGATIVE (< 25 ng/mL); THC Urine VISTA POSITIVE (< 50 ng/mL); Vista UDS pH Range 5
[2020-11-28 05:00] LABS: ALB/GLOB Ratio 0.9 RATIO (0.9-2.4); AST(SGOT) 10 U/L (15-37); Alanine Aminotransfer ALT/SGPT 22 U/L (16-61); Albumin, Serum 3.3 g/dL (3.2-5.0); Alkaline Phosphatase 111 U/L (45-117); Anion Gap 6 (5-15); BUN 10 mg/dL (7-18); BUN/Creat Ratio 9.3 RATIO (10-20); Calcium,Total 8.7 mg/dL (8.5-10.1); Chloride 107 mmol/L (98-107); Creatinine, Serum 1.07 mg/dL (0.70-1.30); EST Glomerular Filtration Rate 82 mL/min (>60); Est Glom Filt Rate - Afr Amer 100 mL/min (>60); Globulin 3.6 g/dL (2.2-4.2); Glucose 94 mg/dL (74-106); Potassium 3.5 mmol/L (3.5-5.1); Protein, Total 6.9 g/dL (6.4-8.2); Sodium Level 138 mmol/L (136-145)
--- NOTE | 2020-11-28 05:21 | PCM.HP.STD ---
Problem List (1) Acute opioid withdrawal syndrome Status: Acute (2) Obesity (BMI 30-39.9) Status: Chronic (3) Tobacco use Status: Chronic (4) History of hypertension Status: Chronic (5) History of radiofrequency ablation procedure for cardiac arrhythmia Status: Chronic (6) Anxiety Status: Chronic (7) Depression Status: Chronic Qualifiers: Depression Type: unspecified Qualified Code(s): F32.9 - Major depressive disorder, single episode, unspecified (8) Opioid use disorder, severe, dependence Status: Chronic History of Present Illness Date of Admission: 11/28/20 Chief Complaint: Acute Opiate Withdrawal The patient is a 35 y/o M w/ PMHx: Hx HTN, ? Cardiac arrhythmia, Anxiety and Depression, Obesity, Tobacco use, Polysubstance abuse (methamphetamine, fentanyl, cannabis) who presents to the [facility] ED on 11/28/20 with history of recent admission however he did not have a residential spot and immediately began using again, but discussed his status with [facility] who noted ability to have a slot for residential this coming Tuesday and recommended again return for detoxification treatment to the [facility] ED on 11/28/20 with history of usual 1-2 gm IV fentanyl as well as 2-3 gm methamphetamine use via snorting, smoking or IV route with most recent usage ~3-4 hours prior to ED presentation now with acute opiate withdrawal onset. He notes usual withdrawal symptoms include abdominal pain/cramping, generalized body aches and pains, rhinorrhea, piloerection, fatigue, restless leg, sweating, yawning. Patient interested in attaining clean status and admits he has purposely since his last discharge stayed away from [facility] so he would not purchase cheap needles. Work-up included T 97.6, heart 96, BP 120/84, respiratory rate 18, 99% on room air, unremarkable CMP, UDS with positive amphetamine, methamphetamine, cannabinoids, ethyl alcohol 7. Past Medical History Past Medical History (Chronic Problems): Chronic Problems Anxiety (Chronic) Obesity (BMI 30-39.9) (Chronic) Tobacco use (Chronic) History of hypertension (Chronic) History of radiofrequency ablation procedure for cardiac arrhythmia (Chronic) Opioid use disorder, severe, dependence (Chronic) Marijuana use, episodic (Chronic) Depression (Chronic) Allergies No Known Allergies Allergy (Verified 11/28/20 04:08) Home Medications: Ambulatory Orders Medication Instructions Recorded NK 11/14/20 Psychiatric History: Anxiety, Depression Lives: With Family - Patient currently lives with his mother. Smoking Status: Current every day smoker - Patient with current 1/2 pack/day cigarette tobacco usage as well as vaping since the age of 14. Tobacco Use: Cigarettes, Vapor Alcohol: Rare Drugs: - - Fentanyl, methamphetamine primarily noted to start, smoke and also inject. - *Family History Maternal History Items: High Cholesterol, Heart Disease, Hypertension Paternal History Items: Cancer - Father with a history of testicular cancer. Review of Systems Constitutional: Reports: Anorexia, Malaise, Fatigue. Denies: Chills, Fever, Weakness, Weight Change HEENT: Reports: Post Nasal Drip. Denies: Head Aches, Sinus Congestion, Sinus Drainage Cardiovascular: Denies: Chest Pain, Palpitations Respiratory: Denies: Cough, Shortness of Breath, Shortness of breath at rest, Shortness of breath upon exertion, Sputum production Gastrointestinal: Reports: Abdominal Pain, Nausea. Denies: Vomiting Genitourinary: Denies: Dysuria Musculoskeletal: Reports: Back Pain, Joint Pain, Leg Pain, Muscle pain. Denies: Joint Tenderness Skin: Denies: Rash, Wounds Neurological: Denies: Numbness, Tingling, Focal weakness Psychiatric: Reports: Anxiety, Depression. Denies: Homicidal Ideations, Suicidal Ideations Hematologic/ Lymphatic: Denies: Easy Bruising, Easy Bleeding VTE Information - Inpt Only VTE Present on Admission: No VTE Mechan Device Prophylaxis: None VTE Pharm Prophylaxis ordered?: No Reason prophylaxis not ordered:: Treatment Not Indicated Patient Problems: Active and Suspected Problems Desire for detoxification (Acute) Acute opioid withdrawal syndrome (Acute) Subjective: Patient laying in the ED bed, fatigued appearance, fast speech, mild restlessness despite fatigue, yawning frequently. Objective: Physical Examination: General: awake, alert, oriented x 3 and cooperative, laying in the ED bed, mildly restless, fatigued appearance, yawning frequently. Skin: normal color, turgor, no icterus, cyanosis. HEENT: AT/NC, EOMI, PERRLA, mildly dry MM, mild rhinorrhea noted, no carotid bruits or JVD noted. Lungs: CTA bilaterally, moderate effort, mild decrease BL bases, no rales, ronchi or wheezing. Heart: Mildly tachycardic with regular rhythm; no gallop, rub audible. Abdomen: soft, obese, mild generalized discomfort with palpation with no rebound or guarding, ND, moderately hyperactive BS, no HSM. Extremities: no cyanosis, clubbing, or edema. Neurological: patient awake, alert, oriented as noted; cognitive function intact; pupils equally reactive to light and accomodation; cranial nerves II-XII grossly normal, moving all 4 extremities, no focal deficits, strength preserved, mildly restless, moving frequently, talking fast despite fatigue. Psychiatric: affect appears fatigued but yet restless, talking fast, moving frequently in the bed, no acute evidence of depressive or anxiety feelings but does admit to chronic depression and anxiety. - Physical Exam Vitals/I&O's: Vital Signs Temp Pulse Resp BP Pulse Ox 97.6 F L 96 18 128/84 H 99 11/28/20 04:05 11/28/20 04:05 11/28/20 04:05 11/28/20 04:05 11/28/20 04:05 Oxygen Delivery Method Room Air Weight: 274 lb 0.553 oz Body Mass Index (BMI) 35.2 Laboratory Results 11/28/20 04:15: Urine Opiates Screen NEGATIVE, Urine Methadone Screen NEGATIVE, Ur Barbiturates Screen NEGATIVE, Ur Phencyclidine Scrn NEGATIVE, Ur Amphetamines Screen POSITIVE H, U Methamphetamin-MDMA POSITIVE H, U Benzodiazepines Scrn NEGATIVE, Urine Cocaine Screen NEGATIVE, U Cannabinoids Screen POSITIVE H, Ur Drug Screen Comment 11/28/20 04:30: Sodium 138, Potassium 3.5, Chloride 107, Carbon Dioxide 25.0, Anion Gap 6, BUN 10, Creatinine 1.07, Estim Creat Clear Calc 109.90, Est GFR (MDRD) Af Amer 100, Est GFR (MDRD) Non-Af 82, BUN/Creatinine Ratio 9.3 L, Glucose 94, Calcium 8.7, Total Bilirubin 0.40, AST 10 L, ALT 22, Alkaline Phosphatase 111, Total Protein 6.9, Albumin 3.3, Globulin 3.6, Albumin/Globulin Ratio 0.9 11/28/20 04:30: Ethyl Alcohol 7.0 Assessment/Plan All Active Problems Desire for detoxification (Acute) Acute opioid withdrawal syndrome (Acute) The patient is a 35 y/o M w/ PMHx: Hx HTN, ? Cardiac arrhythmia, Anxiety and Depression, Obesity, Tobacco use, Polysubstance abuse who presents to the [facility] ED on 11/28/20 with history of recent admission however he did not have a residential spot and immediately began using again, but discussed his status with [facility] who noted ability to have a slot for residential this coming Tuesday and recommended again return for detoxification treatment. 1. Acute Opiate Withdrawal: Will admit to [facility], routine labs including CBC, CMP, urine for drug screen obtained in the ED [], will initiate and continue on protocol with tapering course of Subutex, as needed tylenol, ibuprofen, bowel regimen, gabapentin, Bentyl, Vistaril, methocarbamol, clonidine, PRN nightly trazodone for insomnia, IV fluids, IV antiemetics. Once patient clinically improved and completion of taper nearing will plan consultation with case management for transition to next level of rehabilitation care. 2. Polysubstance Abuse, IVDA Hx: Will obtain HIV and Hepatitis panel. Patient currently not candidate for hep C treatment currently as needs to be clean, sober x 6 months, documented attendance NA or AA meetings, counseling and ongoing negative drug screens. 3. History of hypertension: Patient notes previously hypertensive which resolved following ablation for unclear exact etiology, possibly arrhythmia, BP is appropriate despite current presentation, will continue to monitor and add regimen if appropriate. As needed IV hydralazine. 4. Anxiety and depression: Patient notes significant especially anxiety history, not on any regimen, would benefit from continued close evaluation with [facility] with noted plan for residential following discharge. 5. Tobacco Abuse: Encouraged cessation, inpatient consultation per RT, NR if desired. 6. Obesity: Weight loss and lifestyle changes encouraged. 7. DVT Prophylaxis: Low risk, encourage ambulation. Inpatient E&M: 51268 Init Hosp L3
[2020-11-28] MEDS: Methocarbamol 750 MG Tablet 1500 MG PO ×2 (06:22→20:30)
[2020-11-28 09:22] LABS: HIV - WCH Non-Reactive (Nonreactive)
[2020-11-28] MEDS: Mag Hydrox/Al Hydrox/Simeth 30 ML UDC PO (09:58)
[2020-11-28] MEDS: Dicyclomine 10 MG Capsule 20 MG PO (09:58)
[2020-11-28] MEDS: Buprenorphine HCl 2 MG TAB.SUBL SL ×2 (12:22→17:23)
[2020-11-28 12:51] LABS: Hepatitis C Antibody Non-Reactive (Nonreactive)
--- NOTE | 2020-11-28 13:44 | ADDICTION ---
This senior technical writer met with PT to complete ASAM, MSE, DUDIT assessments and to plan for d/c. PT A+Ox4 and participated appropriately. All assessments completed, faxed to [facility] and placed in PT's chart. PT to direct admit to [facility] on 12/01 at 9am. [facility] to provide transportation.
--- NOTE | 2020-11-28 14:41 | PCM.HOSP.N ---
Hospitalist Note Patient was admitted early this morning and arrived to the floor at about 6 AM. Upon my evaluation he was sleeping soundly and had not yet received his first dose of phenobarb. Patient does have a history of polysubstance abuse including methamphetamines. fentanyl, and cannabis. He had a recent admission here from 11 15-11 17 for acute opiate withdrawal as well but states that a residential spot was not immediately available at discharge and he began using prior to being able to be admitted. He did call [facility] and discussed his status with them and they had documented availability for admission on 12/01/2020. Per case management he will be a direct admit to [facility] at 9 AM on this date. Problem list Acute opiate withdrawal -Subutex taper -As needed medications for symptomatic relief -Discharge 12/01/2020 at 9 AM to [facility] residential unit Polysubstance abuse -Patient does admit to history of IV drug use -HIV is nonreactive -Hep C antibody is negative -Tox screen on admission was positive for amphetamines and THC History of hypertension -Patient was not on any antihypertensives at admission -Blood pressures have been in goal range at the present time -We will continue to monitor Depression/anxiety -Was not on any antidepressants or anxiolytics on admission -We will receive counseling at [facility] -Would recommend further reevaluation after discharge for pharmacological assistance Tobacco abuse -Encourage cessation -Nicotine replacement as needed Obesity -BMI 34.2 -Recommend weight loss DVT prophylaxis -Low risk-early ambulation protocol CODE STATUS -Full code
[2020-11-28] MEDS: traZODone 100 MG Tablet PO (20:30)
[2020-11-28] MEDS: hydrOXYzine PAM 25 MG Capsule 50 MG PO (20:30)
[2020-11-29] MEDS: Buprenorphine HCl 2 MG TAB.SUBL SL ×3 (02:07→18:39)
[2020-11-29 04:00] VITALS: BP 97/45; PULSE 68; RESP 16; TEMP 36.4; O2SAT 98
[2020-11-29 07:07] LABS: HEPATITIS B SURFACE AG Negative (Negative); Hepatitis A AB, Total Negative (Negative); Hepatitis A IgM Antibody Negative (Negative); Hepatitis B Core AB IgM Negative (Negative); Hepatitis B Core Ab Total Negative (Negative); Hepatitis C Ab <0.1 s/co ratio (0.0-0.9)
[2020-11-29 08:41] VITALS: O2SAT 98
[2020-11-29 10:00] VITALS: BP 125/53; PULSE 58; RESP 18; TEMP 36.3; O2SAT 100
[2020-11-29] MEDS: Gabapentin 300 MG Capsule PO (10:05)
--- NOTE | 2020-11-29 10:24 | PCM.PN.HOSP ---
Patient Problems: Active and Suspected Problems Desire for detoxification (Acute) Acute opioid withdrawal syndrome (Acute) Subjective: Patient states he is feeling much better today overall. Voices understanding and knowledge of the plan for discharge to residential treatment on Tuesday at 9 AM. Asks for an extra pillow. Voices no other complaints. Vitals/I&O's: Vital Signs Temp Pulse Resp BP Pulse Ox 97.6 F L 68 16 97/45 L 98 11/29/20 04:00 11/29/20 04:00 11/29/20 04:00 11/29/20 04:00 11/29/20 08:41 Oxygen Delivery Method Room Air Weight: 120.7 kg Body Mass Index (BMI) 34.1 Intake and Output for Last 24 Hours 11/27/20 11/28/20 11/29/20 23:59 23:59 23:59 Intake Total 600 / 600 Balance 600 / 600 General: Alert, Oriented x3, Cooperative, No apparent distress, Well developed, Well nourished, - - White middle-aged male lying in bed, appears stated age, nontoxic HEENT: Atraumatic, Normocephalic Oral: Moist Mucosa Neck: Supple, Trachea Midline Lungs: Clear to auscultation, Normal air movement, No rhonchi, No wheeze, No rales Cardiovascular: Regular rate, Regular Rhythm, Normal S1, Normal S2, No murmurs, No Ectopic Activity, No rub noted, No Gallop Abdomen: Bowel Sounds Present, Soft, Non Tender, Non-Distended Extremities: No clubbing, No cyanosis, No edema, Capillary Refill Less than 3 Seconds, Peripheral Pulses Normal Neurological: Cranial nerves II-XII grossly intact, Neuro grossly intact Psych/Mental Status: Normal Affect, Appropriate Laboratory Results 11/28/20 04:30: Hepatitis C Antibody Non-Reactive Current Medications Acetaminophen (Acetaminophen 500 Mg Tablet) 500 mg PO Q4H PRN PRN PRN Reason: Temp > 100.4 F Al Hydroxide/Mg Hydroxide (Mag Hydrox/Al Hydrox/Simeth 30 Ml Udc) 30 ml PO Q6H PRN PRN PRN Reason: dyspesia Last Admin: 11/28/20 09:58 Dose: 30 ml Documented by: Albuterol Sulfate (Albuterol 2.5 Mg/3 Ml Vial.Neb.) 2.5 mg INHALATION Q2H PRN PRN PRN Reason: Dyspnea, wheezing Bisacodyl (Bisacodyl 10 Mg Suppository) 10 mg RC DAILY PRN PRN Reason: Constipation Buprenorphine HCl (Buprenorphine Hcl 2 Mg Tab.Subl) 2 mg SL Q8H INOCENTE; Taper Stop: 12/01/20 09:59 Last Admin: 11/29/20 09:56 Dose: 2 mg Documented by: Clonidine (Clonidine Hcl 0.1 Mg Tablet) 0.1 mg PO Q8H PRN PRN PRN Reason: RESTLESSNESS Dicyclomine HCl (Dicyclomine 10 Mg Capsule) 20 mg PO Q6H PRN PRN PRN Reason: Abdominal Discomfort Last Admin: 11/28/20 09:58 Dose: 20 mg Documented by: Gabapentin (Gabapentin 300 Mg Capsule) 300 mg PO Q8H PRN PRN PRN Reason: moderate to severe anxiety Last Admin: 11/29/20 10:05 Dose: 300 mg Documented by: Hydralazine HCl (Hydralazine 20 Mg/Ml Vial) 10 mg IV Q4H PRN PRN PRN Reason: SBP > 160 Hydroxyzine Pamoate (Hydroxyzine Jeanna 25 Mg Capsule) 50 mg PO Q6H PRN PRN PRN Reason: mild anxiety Last Admin: 11/28/20 20:30 Dose: 50 mg Documented by: Ibuprofen (Ibuprofen 600 Mg Tablet) 600 mg PO Q8H PRN PRN PRN Reason: PAIN Loperamide HCl (Loperamide 2 Mg Capsule) 2 mg PO Q4H PRN PRN PRN Reason: LOOSE STOOLS Methocarbamol (Methocarbamol 750 Mg Tablet) 1,500 mg PO Q6H PRN PRN PRN Reason: MUSCLE SPASM Last Admin: 11/28/20 20:30 Dose: 1,500 mg Documented by: Nicotine (Nicotine 21 Mg Patch) 21 mg TD DAILY [facility] Last Admin: 11/29/20 09:56 Dose: 21 mg Documented by: Ondansetron HCl (Ondansetron 8 Mg Tablet) 8 mg PO Q8H PRN PRN PRN Reason: NAUSEA Senna (Senna Tablet) 2 tablet PO QHS PRN PRN PRN Reason: Constipation Trazodone HCl (Trazodone 100 Mg Tablet) 100 mg PO QHS PRN PRN PRN Reason: INSOMNIA Last Admin: 11/28/20 20:30 Dose: 100 mg Documented by: STROKE Vital Signs/Narrative: Vital Signs Pulse Ox 11/29/20 08:41 98 Medical Necessity - Tobacco Use Smoking Status: Current every day smoker Tobacco Use: Cigarettes, Vapor Assessment/Plan All Active Problems Desire for detoxification (Acute) Acute opioid withdrawal syndrome (Acute) Acute opiate withdrawal -Subutex taper--> doses 2 mg every 8 hours -As needed medications for symptomatic relief -Discharge 12/01/2020 at 9 AM to [facility] Polysubstance abuse -Patient does admit to history of IV drug use -HIV is nonreactive -Hep C antibody is negative -Tox screen on admission was positive for amphetamines and THC History of hypertension -Patient has been normotensive since arrival and not on any antihypertensive medications -Unclear why this is in his medical history Depression/anxiety -Was not on any antidepressants or anxiolytics on admission -We will receive counseling at [facility] -Would recommend further reevaluation after discharge for pharmacological assistance Tobacco abuse -Encourage cessation -Nicotine replacement as needed Obesity -BMI 34.2 -Recommend weight loss DVT prophylaxis -Low risk-early ambulation protocol CODE STATUS -Full code Inpatient E&M: 08883 Subs Hosp L2
[2020-11-29 10:28] VITALS: PULSE 58
[2020-11-29 12:11] LABS: Hep B Surface Antibodies Non Reactive (.)
[2020-11-29 16:43] VITALS: BP 113/70; PULSE 64; RESP 16; TEMP 36.5; O2SAT 99
[2020-11-29 21:20] VITALS: BP 101/65; PULSE 68; RESP 18; TEMP 36.7; O2SAT 98
[2020-11-29] MEDS: traZODone 100 MG Tablet PO (21:25)
[2020-11-30 02:05] VITALS: BP 98/57; PULSE 54; RESP 18; TEMP 36.5; O2SAT 100
[2020-11-30] MEDS: Ondansetron 8 MG Tablet PO (02:07)
[2020-11-30] MEDS: Buprenorphine HCl 2 MG TAB.SUBL SL ×3 (02:07→21:57)
[2020-11-30] MEDS: hydrOXYzine PAM 25 MG Capsule 50 MG PO (02:07)
[2020-11-30] MEDS: Ibuprofen 600 MG Tablet PO (02:07)
[2020-11-30 07:24] VITALS: O2SAT 96
[2020-11-30] MEDS: Acetaminophen 500 MG Tablet PO (07:50)
[2020-11-30] MEDS: Gabapentin 300 MG Capsule PO ×2 (07:51→17:06)
--- NOTE | 2020-11-30 07:52 | NURSING ---
Awake and up to bathroom. Requesting something for hip pain. Tylenol given.
[2020-11-30 07:53] VITALS: BP 99/60; PULSE 50; RESP 16; TEMP 36.6; O2SAT 97
[2020-11-30 07:56] VITALS: PULSE 50
--- NOTE | 2020-11-30 11:05 | PCM.PN.HOSP ---
Patient Problems: Active and Suspected Problems Desire for detoxification (Acute) Acute opioid withdrawal syndrome (Acute) Subjective: States overall he is feeling much better. Admits that he is still little bit tired. Is pleased with this plan for discharge tomorrow morning to inpatient rehab with [facility]. Vitals/I&O's: Vital Signs Temp Pulse Resp BP Pulse Ox 97.8 F 50 L 16 99/60 97 11/30/20 07:53 11/30/20 07:56 11/30/20 07:53 11/30/20 07:53 11/30/20 07:53 Oxygen Delivery Method Room Air Weight: 120.7 kg Body Mass Index (BMI) 34.1 Intake and Output for Last 24 Hours 11/28/20 11/29/20 11/30/20 23:59 23:59 23:59 Intake Total 1959 400 / 400 Balance 1959 400 / 400 General: Alert, Oriented x3, Cooperative, No apparent distress, Well developed, Well nourished, - - Middle-aged white male, sitting up in bed, watching television, appears comfortable, nontoxic HEENT: Atraumatic, Normocephalic Oral: Moist Mucosa Neck: Supple, Trachea Midline Lungs: Clear to auscultation, Normal air movement, No rhonchi, No wheeze, No rales Cardiovascular: Regular rate, Regular Rhythm, Normal S1, Normal S2, No murmurs, No Ectopic Activity, No rub noted, No Gallop Abdomen: Bowel Sounds Present, Soft, Non Tender, Non-Distended Extremities: No clubbing, No cyanosis, No edema, Capillary Refill Less than 3 Seconds, Peripheral Pulses Normal Neurological: Cranial nerves II-XII grossly intact, Neuro grossly intact Psych/Mental Status: Normal Affect, Appropriate Laboratory Results 11/28/20 04:30: Hepatitis A IgM Ab Negative, Hepatitis A Ab Total Negative, Hep Bs Antigen Negative, Hep B Core Total Ab Negative, Hep B Core IgM Ab Negative, Hepatitis C Ab Confirm <0.1, Hep C Confirm Com 1 Comment Current Medications Acetaminophen (Acetaminophen 500 Mg Tablet) 500 mg PO Q4H PRN PRN PRN Reason: Temp > 100.4 F Last Admin: 11/30/20 07:50 Dose: 500 mg Documented by: Al Hydroxide/Mg Hydroxide (Mag Hydrox/Al Hydrox/Simeth 30 Ml Udc) 30 ml PO Q6H PRN PRN PRN Reason: dyspesia Last Admin: 11/28/20 09:58 Dose: 30 ml Documented by: Albuterol Sulfate (Albuterol 2.5 Mg/3 Ml Vial.Neb.) 2.5 mg INHALATION Q2H PRN PRN PRN Reason: Dyspnea, wheezing Bisacodyl (Bisacodyl 10 Mg Suppository) 10 mg RC DAILY PRN PRN Reason: Constipation Buprenorphine HCl (Buprenorphine Hcl 2 Mg Tab.Subl) 2 mg SL Q12H INOCENTE; Taper Stop: 12/01/20 09:59 Last Admin: 11/30/20 10:59 Dose: 2 mg Documented by: Clonidine (Clonidine Hcl 0.1 Mg Tablet) 0.1 mg PO Q8H PRN PRN PRN Reason: RESTLESSNESS Dicyclomine HCl (Dicyclomine 10 Mg Capsule) 20 mg PO Q6H PRN PRN PRN Reason: Abdominal Discomfort Last Admin: 11/28/20 09:58 Dose: 20 mg Documented by: Gabapentin (Gabapentin 300 Mg Capsule) 300 mg PO Q8H PRN PRN PRN Reason: moderate to severe anxiety Last Admin: 11/30/20 07:51 Dose: 300 mg Documented by: Hydralazine HCl (Hydralazine 20 Mg/Ml Vial) 10 mg IV Q4H PRN PRN PRN Reason: SBP > 160 Hydroxyzine Pamoate (Hydroxyzine Jeanna 25 Mg Capsule) 50 mg PO Q6H PRN PRN PRN Reason: mild anxiety Last Admin: 11/30/20 02:07 Dose: 50 mg Documented by: Ibuprofen (Ibuprofen 600 Mg Tablet) 600 mg PO Q8H PRN PRN PRN Reason: PAIN Last Admin: 11/30/20 02:07 Dose: 600 mg Documented by: Loperamide HCl (Loperamide 2 Mg Capsule) 2 mg PO Q4H PRN PRN PRN Reason: LOOSE STOOLS Methocarbamol (Methocarbamol 750 Mg Tablet) 1,500 mg PO Q6H PRN PRN PRN Reason: MUSCLE SPASM Last Admin: 11/28/20 20:30 Dose: 1,500 mg Documented by: Nicotine (Nicotine 21 Mg Patch) 21 mg TD DAILY [facility] Last Admin: 11/30/20 10:59 Dose: 21 mg Documented by: Ondansetron HCl (Ondansetron 8 Mg Tablet) 8 mg PO Q8H PRN PRN PRN Reason: NAUSEA Last Admin: 11/30/20 02:07 Dose: 8 mg Documented by: Senna (Senna Tablet) 2 tablet PO QHS PRN PRN PRN Reason: Constipation Trazodone HCl (Trazodone 100 Mg Tablet) 100 mg PO QHS PRN PRN PRN Reason: INSOMNIA Last Admin: 11/29/20 21:25 Dose: 100 mg Documented by: STROKE Vital Signs/Narrative: Vital Signs Temp Pulse Resp BP Pulse Ox 11/30/20 07:56 50 L 11/30/20 07:53 97.8 F 50 L 16 99/60 97 11/30/20 07:24 96 Medical Necessity - Tobacco Use Smoking Status: Current every day smoker Tobacco Use: Cigarettes, Vapor Assessment/Plan All Active Problems Desire for detoxification (Acute) Acute opioid withdrawal syndrome (Acute) Acute opiate withdrawal -Subutex taper--> doses 2 mg every 12 hours -As needed medications for symptomatic relief -Discharge 12/01/2020 at 9 AM to [facility] Polysubstance abuse -Patient does admit to history of IV drug use -HIV is nonreactive -Hep C antibody is negative -Hep A and hep B negative as well -Tox screen on admission was positive for amphetamines and THC History of hypertension -Patient has been normotensive since arrival and not on any antihypertensive medications -Unclear why this is in his medical history Depression/anxiety -Was not on any antidepressants or anxiolytics on admission -We will receive counseling at 180 -Would recommend further reevaluation after discharge for pharmacological assistance Tobacco abuse -Encourage cessation -Nicotine replacement as needed Obesity -BMI 34.2 -Recommend weight loss DVT prophylaxis -Low risk-early ambulation protocol CODE STATUS -Full code Disposition -Discharge 12/01/2020 at 9 AM to [facility] unit Inpatient E&M: 39385 Subs Hosp L2
[2020-11-30] MEDS: Methocarbamol 750 MG Tablet 1500 MG PO (17:05)
[2020-11-30 17:07] VITALS: BP 124/72; PULSE 73; RESP 20; TEMP 36.7; O2SAT 100
[2020-11-30 21:55] VITALS: BP 116/64; PULSE 94; RESP 18; TEMP 36.6; O2SAT 97
[2020-11-30] MEDS: traZODone 100 MG Tablet PO (21:57)
[2020-12-01 03:55] VITALS: BP 113/64; PULSE 58; RESP 18; TEMP 36.6; O2SAT 98
[2020-12-01 07:33] VITALS: BP 109/71; PULSE 58; RESP 16; TEMP 36.6; O2SAT 97
[2020-12-01 07:37] VITALS: O2SAT 97
--- NOTE | 2020-12-01 07:50 | PCM.DC ---
- Discharge Diagnoses Current Active Problems: Current Active and Chronic Problems Anxiety (Chronic) Desire for detoxification (Acute) Obesity (BMI 30-39.9) (Chronic) Tobacco use (Chronic) History of hypertension (Chronic) History of radiofrequency ablation procedure for cardiac arrhythmia (Chronic) Acute opioid withdrawal syndrome (Acute) Opioid use disorder, severe, dependence (Chronic) Depression (Chronic) Reason(s) for Visit for Discharge Instructions: Acute opiate withdrawal You will use the following diet at home:: Regular Your food should be the consistency of: Regular Your liquids should be the consistency of: Regular/Thin Discharge Activity: Return to Normal Activity Additional Instructions: You are strongly advised to continue to avoid use of opioids. You are also advised to stop smoking. Follow-up with your inpatient drug rehab program as scheduled. Allergies/Adverse Reactions: Allergies No Known Allergies Allergy (Verified 11/28/20 04:08) Medications to take at Discharge NK 11/14/20 Primary Care Physician: Arianna Segura, PA [Primary Care Provider] - Please follow up with your Primary Care Physician in: within 1-2 weeks Test Results: Test results from this visit will be discussed in further detail at your follow-up appointment, if applicable. Proposed Discharge Date: 12/01/20
--- NOTE | 2020-12-01 07:52 | DS.PCM_ITS ---
Discharge Date and Diagnosis - Problem List Patient Problems: Active and Suspected Problems Desire for detoxification (Acute) Acute opioid withdrawal syndrome (Acute) Date of Admission: 11/28/20 Date of Discharge: 12/01/20 - Primary Discharge Diagnosis Acute Problems: Active Problems Acute opioid withdrawal Polysubstance use disorder - Secondary Discharge Diagnosis Chronic Problems: Chronic Problems Anxiety (Chronic) Obesity (BMI 30-39.9) (Chronic) Tobacco use (Chronic) History of radiofrequency ablation procedure for cardiac arrhythmia (Chronic) Opioid use disorder, severe, dependence (Chronic) Marijuana use, episodic (Chronic) Depression (Chronic) Hospital Course and Treatment None Operations: None Procedures: None Summary of Care Provided: The patient is a 35 year old M medical history of polysubstance use, anxiety/depression who presented for medical stabilization from opioid. Patient admits to using fentanyl and cannabinoids. He used 1-2 g of IV fentanyl as well as 2-3 g of methamphetamine via snorting, smoking via IV route. Last used 2 to 3 hours prior to admission. She was admitted to the [facility] floor and managed on the opiate withdrawal protocol with no acute events. He will follow-up with the [facility] inpatient program as scheduled. Patient Problems: Active and Suspected Problems Desire for detoxification (Acute) Acute opioid withdrawal syndrome (Acute) Subjective: On the day of discharge, patient was seen and examined. Objective: Physical exam: General: Alert, Oriented x3, Cooperative, No apparent distress, Well developed, Well nourished, HEENT: Atraumatic, Normocephalic Oral: Moist Mucosa Neck: Supple, Trachea Midline Lungs: Clear to auscultation, Normal air movement, No rhonchi, No wheeze, No rales Cardiovascular: Regular rate, Regular Rhythm, Normal S1, Normal S2, No murmurs, No Ectopic Activity, No rub noted, No Gallop Abdomen: Bowel Sounds Present, Soft, Non Tender, Non-Distended Extremities: No clubbing, No cyanosis, No edema, Capillary Refill Less than 3 Seconds, Peripheral Pulses Normal Neurological: Cranial nerves II-XII grossly intact, Neuro grossly intact Psych/Mental Status: Normal Affect, Appropriate - Physical Exam Vitals/I&O's: Vital Signs Temp Pulse Resp BP Pulse Ox 97.8 F 58 L 16 109/71 97 12/01/20 07:33 12/01/20 07:33 12/01/20 07:33 12/01/20 07:33 12/01/20 07:37 Oxygen Delivery Method Room Air Weight: 120.7 kg Body Mass Index (BMI) 34.1 Intake and Output for Last 24 Hours 11/29/20 11/30/20 12/01/20 23:59 23:59 23:59 Intake Total 1959 1600 / 1600 300 / 300 Balance 1959 1600 / 1600 300 / 300 Current Medications Acetaminophen (Acetaminophen 500 Mg Tablet) 500 mg PO Q4H PRN PRN PRN Reason: Temp > 100.4 F Last Admin: 11/30/20 07:50 Dose: 500 mg Documented by: Al Hydroxide/Mg Hydroxide (Mag Hydrox/Al Hydrox/Simeth 30 Ml Udc) 30 ml PO Q6H PRN PRN PRN Reason: dyspesia Last Admin: 11/28/20 09:58 Dose: 30 ml Documented by: Albuterol Sulfate (Albuterol 2.5 Mg/3 Ml Vial.Neb.) 2.5 mg INHALATION Q2H PRN PRN PRN Reason: Dyspnea, wheezing Bisacodyl (Bisacodyl 10 Mg Suppository) 10 mg RC DAILY PRN PRN Reason: Constipation Buprenorphine HCl (Buprenorphine Hcl 2 Mg Tab.Subl) 2 mg SL Q12H INOCENTE; Taper Stop: 12/01/20 09:59 Last Admin: 11/30/20 21:57 Dose: 2 mg Documented by: Clonidine (Clonidine Hcl 0.1 Mg Tablet) 0.1 mg PO Q8H PRN PRN PRN Reason: RESTLESSNESS Dicyclomine HCl (Dicyclomine 10 Mg Capsule) 20 mg PO Q6H PRN PRN PRN Reason: Abdominal Discomfort Last Admin: 11/28/20 09:58 Dose: 20 mg Documented by: Gabapentin (Gabapentin 300 Mg Capsule) 300 mg PO Q8H PRN PRN PRN Reason: moderate to severe anxiety Last Admin: 11/30/20 17:06 Dose: 300 mg Documented by: Hydralazine HCl (Hydralazine 20 Mg/Ml Vial) 10 mg IV Q4H PRN PRN PRN Reason: SBP > 160 Hydroxyzine Pamoate (Hydroxyzine Jeanna 25 Mg Capsule) 50 mg PO Q6H PRN PRN PRN Reason: mild anxiety Last Admin: 11/30/20 02:07 Dose: 50 mg Documented by: Ibuprofen (Ibuprofen 600 Mg Tablet) 600 mg PO Q8H PRN PRN PRN Reason: PAIN Last Admin: 11/30/20 02:07 Dose: 600 mg Documented by: Loperamide HCl (Loperamide 2 Mg Capsule) 2 mg PO Q4H PRN PRN PRN Reason: LOOSE STOOLS Methocarbamol (Methocarbamol 750 Mg Tablet) 1,500 mg PO Q6H PRN PRN PRN Reason: MUSCLE SPASM Last Admin: 11/30/20 17:05 Dose: 1,500 mg Documented by: Nicotine (Nicotine 21 Mg Patch) 21 mg TD DAILY IN[facility] Last Admin: 11/30/20 10:59 Dose: 21 mg Documented by: Ondansetron HCl (Ondansetron 8 Mg Tablet) 8 mg PO Q8H PRN PRN PRN Reason: NAUSEA Last Admin: 11/30/20 02:07 Dose: 8 mg Documented by: Senna (Senna Tablet) 2 tablet PO QHS PRN PRN PRN Reason: Constipation Trazodone HCl (Trazodone 100 Mg Tablet) 100 mg PO QHS PRN PRN PRN Reason: INSOMNIA Last Admin: 11/30/20 21:57 Dose: 100 mg Documented by: Discharge Diet: No Restrictions Discharge Activity: Return to Normal Activity Home Medications: Medications to take at Discharge NK 11/14/20 Primary Care Physician: Arianna Segura, PA [Primary Care Provider] - Please follow up with your Primary Care Physician in: within 1-2 weeks Disposition: Home Minutes spent on discharge:: 25 Patient Condition:: Stable Medical Necessity - Tobacco Use Smoking Status: Current every day smoker Tobacco Use: Cigarettes, Vapor Meaningful Use Info Meaningful Use Diagnoses (Choose all that apply): None applicable Inpatient E&M: 67670 Disch Hosp
== END 2020-12-01 09:08 | disposition home or self-care (01) | DRG 773 ==
LOC: ED 05:16 → MS3 05:36
PROVIDERS: Internal Medicine; Admitting Provider Family Medicine; Emergency Provider Emergency Medicine; PCP Physician Assistant Medical; Visit Provider Internal Medicine
DX: F11.23 Opioid dependence with withdrawal (principal); F15.10 Other stimulant abuse, uncomplicated; F12.10 Cannabis abuse, uncomplicated; F32.9 Major depressive disorder, single episode, unspecified; F41.9 Anxiety disorder, unspecified; I10 Essential (primary) hypertension; E66.9 Obesity, unspecified; Z68.35 Body mass index [BMI] 35.0-35.9, adult; F17.210 Nicotine dependence, cigarettes, uncomplicated
CPT/HCPCS: 36415; 80053; 80307; 82077; 86703; 86704; 86705; 86706; 86708; 86709; 86803; 87340; 99283; 99406

== ENCOUNTER 2021-03-02 22:04 | Inpatient (IN) | payer MEDICAID, SELFPAY ==
[2020-11-28 06:04] VITALS: BMI 34.1
[2021-03-02 22:05] VITALS: BP 119/71; PULSE 83; RESP 18; TEMP 36.6; O2SAT 98; BMI 31.9
[2021-03-02 23:16] LABS: Amphetamine Urine VISTA POSITIVE (<1000 ng/mL); Barbiturate Urine VISTA NEGATIVE (< 200 ng/mL); Benzodiazepine Urine VISTA NEGATIVE (< 200 ng/mL); Cocaine Urine VISTA NEGATIVE (< 300 ng/mL); Ecstacy Urine VISTA NEGATIVE (< 500 ng/mL); Methadone Urine VISTA NEGATIVE (< 300 ng/mL); PCP Urine VISTA NEGATIVE (< 25 ng/mL); THC Urine VISTA POSITIVE (< 50 ng/mL); Vista UDS pH Range 5
[2021-03-03 00:40] VITALS: BP 116/76; PULSE 58; RESP 16; O2SAT 98
--- NOTE | 2021-03-03 00:43 | EDS_ITS ---
HPI History of Present Illness Chief Complaint: Substance Abuse Informant: patient Onset/Context/Timing Onset: Today Context: Gradual Onset Timing: Continuous Current Severity: Moderate Maximum Severity: Moderate Narrative Narrative: Patient is a 36-year-old male presents to the emergency department requesting detox. The patient states that he abuses both fentanyl and methamphetamines. He injects, snorts, or smokes. He last used earlier today. He states that he went through detox before and was able to be clean for 3 years. He states that he still has desire to get clean. He denies any history of hepatitis. He denies any fever or chills. His last use was today. Prior similar symptoms: Yes [facility] Medical History Anxiety Chronic pain Smoker Substance abuse Home Medications NK 11/14/20 [History Last Taken Unknown] Allergy/AdvReac Type Severity Reaction Status Date / Time No Known Allergies Allergy Verified 11/28/20 04:08 Social History Smoking Status: Heavy Smoker (>10/day) ROS ROS ED Constitutional Constitutional ED: Denies chills or fever(s) Eyes Eyes: Denies blurry vision or change in vision ENT ENT ED: Denies ear pain or sore throat Cardiovascular Cardiovascular: Denies chest pain or palpitations Respiratory/Chest Respiratory/Chest: Denies cough, dyspnea or dyspnea on exertion Gastrointestinal Gastrointestinal: Denies abdominal pain, nausea or vomiting Genitourinary Genitourinary ED: Denies dysuria or urinary frequency Musculoskeletal Musculoskeletal: Denies arthralgias or myalgias Integumentary Denies rash Neurologic Neurologic: Denies headache(s) or paresthesias Psychiatric Psychiatric: Denies anxiety or depression Endocrine Endocrinology: Denies polydipsia or polyuria Allergic/Immunologic Allergic/Immunologic ED: Denies urticaria EXAM Physical Exam Const Vital Signs: 03/02/21 22:05 03/03/21 00:40 Temperature 97.9 F Temperature Source Temporal Pulse Rate 83 58 L Respiratory Rate 18 16 Blood Pressure 119/71 116/76 Blood Pressure Mean 87 89 Pulse Ox 98 98 Oxygen Delivery Method Room Air Positive well nourished and well developed General Appearance ED: well developed HEENT Reports normocephalic, head/scalp atraumatic and moist mucous membranes Eyes PERRL and EOMs intact bilaterally Neck no lymphadenopathy and supple General: Negative for tenderness Chest Wall inspection of chest normal Resp normal respiratory effort and clear to auscultation bilaterally Cardio regular rate, regular rhythm and no murmurs GI normal to inspection, nondistended, normoactive bowel sounds Palpation: Negative for tender, guarding or rebound tenderness present Back/Spine no CVA tenderness Cervical Spine: Negative for cervical spine tenderness Thoracic Spine / Upper Back: Negative for thoracic spinal tenderness Extremity normal to inspection General Extremety ED: Negative for tenderness Neuro oriented x3 and CN's II-XII intact bilaterally Neuro Narrative: No focal deficits appreciated. Sensorium / Orientation: alert Psych mental status grossly normal Skin no rashes or lesions noted, no wounds and skin turgor normal MDM MDM MDM Narrative Medical decision making narrative: Patient presents requesting detox for f entanyl and amphetamines. He denies fever chills. Metabolic work-up was pursued. The patient is discussed with the hospitalist for admission. Impression 1. Opiate dependence and abuse Lab Data Attestation: I reviewed the patient's lab results. Labs: Laboratory Results - last 24 hr 03/02/21 22:45 Urine Opiates Screen NEGATIVE Urine Methadone Screen NEGATIVE Ur Barbiturates Screen NEGATIVE Ur Phencyclidine Scrn NEGATIVE Ur Amphetamines Screen POSITIVE H U Methamphetamin-MDMA NEGATIVE U Benzodiazepines Scrn NEGATIVE Urine Cocaine Screen NEGATIVE U Cannabinoids Screen POSITIVE H Ur Drug Screen Comment Discharge Plan Triage Chief Complaint: Substance Abuse ED Provider: Dariel Arias Dx/Rx/DC Orders Prescriptions: No Action NK RF: 0 Primary Care Provider: Arianna Segura
--- NOTE | 2021-03-03 00:58 | HP.PCM_ITS ---
HPI - General HPI Narrative ENZO HIGUERA, is a 36 M who presents to the emergency room requesting opiate withdrawal detoxification. Patient states he last went through our detox program 3 months ago but the patient failed to follow-up and outpatient care due to conflict with someone in the program. The patient states he uses 2 to 3 g of Dilaudid IV daily and is requesting help at this time. No significant past medical history noted. Patient does have some abdominal discomfort with nausea and feeling shaky. His last used Dilaudid was at 2:00 this afternoon. The patient denies chest pain shortness of breath fevers or chills. He will be admitted for opiate withdrawal. Of note the patient did not admit to me that he used amphetamine when asked directly if there were other medications that he used despite having a tox screen positive for cannabinoids and amphetamine. [facility] Medical History Anxiety Chronic pain Smoker Substance abuse Home Medications NK 11/14/20 [History Last Taken Unknown] Allergy/AdvReac Type Severity Reaction Status Date / Time No Known Allergies Allergy Verified 11/28/20 04:08 Social History Smoking Status: Heavy Smoker (>10/day) ROS Constitutional Constitutional: Denies chills ENT HEENT: Denies dysphagia Cardiovascular Cardiovascular: Denies chest pain Respiratory/Chest Respiratory/Chest: Denies cough or shortness of breath at rest Gastrointestinal Gastrointestinal: Reports abdominal pain and nausea Musculoskeletal Musculoskeletal: Denies back pain Neurologic Neurologic: Denies abnormal speech Psychiatric Psychiatric: Reports anxiety Vital Signs Vital Signs Vital Signs: 03/02/21 22:05 03/03/21 00:40 Temperature 97.9 F Temperature Source Temporal Pulse Rate 83 58 L Respiratory Rate 18 16 Blood Pressure 119/71 116/76 Blood Pressure Mean 87 89 Pulse Ox 98 98 Oxygen Delivery Method Room Air Weight Weight: 249 lb 1.957 oz Body Mass Index (BMI) 31.9 Physical Exam Const oriented x3 HEENT normocephalic and head/scalp atraumatic Eyes PERRL Lymph Lymphatic: no lymphadenopathy noted Resp normal respiratory effort Cardio regular rate, regular rhythm, S1 normal heart sound and S2 normal heart sound GI normal to inspection, nondistended, normoactive bowel sounds Extremity no clubbing, cyanosis or edema Skin Rashes: no rashes Neuro CN's II-XII intact bilaterally Psych affect normal Results Lab / Micro Data Labs: Laboratory Results - last 24 hr 03/02/21 22:45 Urine Opiates Screen NEGATIVE Urine Methadone Screen NEGATIVE Ur Barbiturates Screen NEGATIVE Ur Phencyclidine Scrn NEGATIVE Ur Amphetamines Screen POSITIVE H U Methamphetamin-MDMA NEGATIVE U Benzodiazepines Scrn NEGATIVE Urine Cocaine Screen NEGATIVE U Cannabinoids Screen POSITIVE H Ur Drug Screen Comment Assessment & Plan Assessment/Plan (1) Acute opioid withdrawal syndrome: (2) Depression: QUALIFIERS: Depression Type: unspecified Qualified Code(s): F32.9 - Major depressive disorder, single episode, unspecified (3) Desire for detoxification: PLAN: 1. Opiate withdrawal. Admit patient to general medical floor?start opiate withdrawal protocol. Strongly encourage the patient that he follows up this time as an outpatient and rehab following his detox. 2. Depression?would recommend reassessing and addressing after he goes through the detoxification. 3. DVT prophylaxis?low molecular weight heparin Charges/Coding Visit Charges Inpatient E&M: 51806 Init Hosp L2
[2021-03-03 01:56] VITALS: BP 143/80; PULSE 81; RESP 18; TEMP 36.3; O2SAT 99; BMI 32.1
[2021-03-03 02:07] VITALS: BP 121/70; PULSE 66; RESP 16; TEMP 36.7; O2SAT 100
[2021-03-03 08:00] VITALS: BP 105/59; PULSE 69; RESP 14; TEMP 36.7; O2SAT 96
[2021-03-03] MEDS: Ondansetron 8 MG Tablet PO (08:29)
[2021-03-03] MEDS: Buprenorphine HCl 2 MG TAB.SUBL SL ×3 (08:29→23:55)
[2021-03-03 08:30] LABS: Absolute Lymphocyte Count 2.07 X10^3/uL (0.83-4.51); Absolute Neutrophil Count 1.9 X10^3/uL (2.0-7.7); Basophil# 0.04 X10^3/uL; Basophil% 0.8 % (0-1); Eosinophil# 0.24 X10^3/uL; Hematocrit 43.5 % (40-54); Hemoglobin 14.3 g/dL (13.0-16.5); Lymphocyte # 2.07 X10^3/ul (0.83-4.51); Mean Corp Hgb Conc 32.9 g/dL (32-36); Mean Corpuscular Hgb 27.7 pg (27.0-32.0); Mean Corpuscular Volume 84.3 fL (80-94); Mean Platelet Vol. 10.3 fl (6.2-12.0); Monocyte# 0.52 X10^3/uL; Monocyte% 10.8 % (0-10); NRBC Flagged by Analyzer 0 % (0-5); Neutrophil # 1.94 X10^3/uL (2.7-7.7); Neutrophil % 40.4 % (47-70); Platelet Count 211 K/mm3 (150-450); RBC Distribution Width CV 13.3 % (11.6-14.6); RBC Distribution Width SD 41.1 fl (35.1-43.9); Red Blood Count 5.16 M/mm3 (4.6-6.2); White Blood Count 4.8 K/mm3 (4.4-11.0)
[2021-03-03] MEDS: Methocarbamol 750 MG Tablet 1500 MG PO ×2 (08:30→20:32)
[2021-03-03] MEDS: Senna Tablet 2 TABLET PO (08:36)
[2021-03-03 08:53] LABS: ALB/GLOB Ratio 0.9 RATIO (0.9-2.4); AST(SGOT) 14 U/L (15-37); Alanine Aminotransfer ALT/SGPT 18 U/L (16-61); Albumin, Serum 2.9 g/dL (3.2-5.0); Alkaline Phosphatase 103 U/L (45-117); Anion Gap 7 (5-15); BUN 9 mg/dL (7-18); Chloride 107 mmol/L (98-107); Creatinine, Serum 0.82 mg/dL (0.70-1.30); EST Glomerular Filtration Rate 112 mL/min (>60); Est Glom Filt Rate - Afr Amer 136 mL/min (>60); Estimated Creatinine Clearance 142.01 ml/min; Globulin 3.1 g/dL (2.2-4.2); Glucose 112 mg/dL (74-106); Magnesium 2.2 mg/dL (1.6-2.6); Phosphorus 3.5 mg/dL (2.5-4.9); Potassium 3.9 mmol/L (3.5-5.1); Sodium Level 140 mmol/L (136-145)
--- NOTE | 2021-03-03 09:49 | ADDICTION ---
This job specification writer met with PT to conduct ASAM, MSE, DUDIT assessments and to plan for d/c. PT A+Ox4 and engaged appropriately. All assessments completed, faxed to [facility] and placed in PT's chart. PT requesting referral to [facility]. Referral made, this job specification writer will collaborate with PT and [facility] for admit.
--- NOTE | 2021-03-03 13:07 | PN.HOSP_ITS ---
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 Patient uses fentanyl and methamphetamine, IV use. Complain of generalized body aches, restlessness and anxiety. Objective Data Objective Data Vital Signs: Vital Signs Temp Pulse Resp BP Pulse Ox 98.0 F 69 14 105/59 L 96 03/03/21 08:00 03/03/21 08:00 03/03/21 08:00 03/03/21 08:00 03/03/21 08:00 Oxygen Delivery Method Room Air Weight: 250 lb 0.067 oz Body Mass Index (BMI) 32.1 Intake & Output: Intake and Output for Last 24 Hours 03/01/21 03/02/21 03/03/21 23:59 23:59 23:59 Intake Total 800 / 800 Balance 800 / 800 Lab / Micro Data Result Diagrams: 03/03/21 08:20 03/03/21 08:20 Labs: Laboratory Results - last 24 hr 03/02/21 03/03/21 03/03/21 22:45 08:20 08:20 WBC 4.8 RBC 5.16 Hgb 14.3 Hct 43.5 MCV 84.3 MCH 27.7 MCHC 32.9 RDW Std Deviation 41.1 RDW Coeff of Camille 13.3 Plt Count 211 MPV 10.3 Immature Gran % (Auto) 0.000 Neut % (Auto) 40.4 L Lymph % (Auto) 43.0 H [place] % (Auto) 10.8 H Eos % (Auto) 5.0 Baso % (Auto) 0.8 Absolute Neuts (auto) 1.9 L Absolute Lymphs (auto) 2.07 Nucleated RBC % 0 Sodium 140 Potassium 3.9 Chloride 107 Carbon Dioxide 26.0 Anion Gap 7 BUN 9 Creatinine 0.82 Estim Creat Clear Calc 142.01 Est GFR (MDRD) Af Amer 136 Est GFR (MDRD) Non-Af 112 BUN/Creatinine Ratio 11.0 Glucose 112 H Calcium 8.0 L Phosphorus 3.5 Magnesium 2.2 Total Bilirubin 0.40 AST 14 L ALT 18 Alkaline Phosphatase 103 Total Protein 6.0 L Albumin 2.9 L Globulin 3.1 Albumin/Globulin Ratio 0.9 Urine Opiates Screen NEGATIVE Urine Methadone Screen NEGATIVE Ur Barbiturates Screen NEGATIVE Ur Phencyclidine Scrn NEGATIVE Ur Amphetamines Screen POSITIVE H U Methamphetamin-MDMA NEGATIVE U Benzodiazepines Scrn NEGATIVE Urine Cocaine Screen NEGATIVE U Cannabinoids Screen POSITIVE H Ur Drug Screen Comment Physical Exam Narrative Physical exam General: Oriented x3, Cooperative, lethargic. HEENT: Atraumatic, PERRLA, EOMI, Normocephalic Oral: No Gingival or Mucosal Lesions/ Ulcerations Neck: Supple, No JVD, Negative Carotid Bruits Lungs: Air entry diminished in bilateral lung bases. No crepitation/rhonchi Cardiovascular: Regular rate, Regular Rhythm, Normal S1, Normal S2, No murmurs Abdomen: Bowel Sounds Present, Soft, Non Tender, Non-Distended : No renal angle tenderness. No suprapubic tenderness. Extremities: No edema, Capillary Refill Less than 3 Seconds Skin: No rashes, No breakdown Musculoskeletal: No Tenderness to Palpation of Joints or Extremities Neurological: Cranial nerves II-XII grossly intact, Deep Tendon Reflexes 2+/4 and Symmetrical, Neuro grossly intact Psych/Mental Status: Flat affect. Assessment & Plan Assessment/Plan (1) Acute opioid withdrawal syndrome: PLAN: 1. Acute opioid withdrawal syndrome with chronic opioid use and dependence: Patient uses 2 to 3 g of IV Dilaudid along with IV fentanyl and methamphetamine. On opioid order set with buprenorphine and other supportive medications. See INR monitoring. Discussed with the nursing staff. U tox screen positive for cannabinoids and amphetamine 2. Chronic cigarette smoker with nicotine dependence: Patient is smokes at least 1 pack cigarettes since age of 14. Smoking cessation advised. 3. Anxiety and depression: On hydroxyzine and trazodone as needed while inpatient. Will need outpatient psychiatric evaluation. VTE prophylaxis on Lovenox 40 subcu daily. Discontinue if platelet count drops less than 50,000 or hemoglobin less than 8 g%
[2021-03-03 15:00] VITALS: BP 115/76; PULSE 60; RESP 14; TEMP 36.6; O2SAT 98
--- NOTE | 2021-03-03 15:23 | CHAPLAIN ---
Type of Pastoral Visit _x__ Initial Visit ___ Follow-up Visit ___ On-call Visit ___ General Patient Visit ___ Spiritual Assessment ___ Family Conference ___ Bereavement ___ Rapid Response ___ Code Blue ___ Other (describe below) Pastoral Care Referral From _x__ Patient ___ Family ___ Nurse ___ Physician ___ Radio Repairer ___ Manufacturing Software Engineer ___ Other (describe below) Sacrament/Intervention _x__ Active listening ___ Anointing ___ Rastafarian ___ Bereavement ___ Communion ___ Ainsley exploration ___ ___ Life review ___ Prayer ___ Reconciliation ___ Sacrament of Sick ___ Supportive presence ___ Wedding ___ Other (describe below) Pastoral Comments patient remembers 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
[2021-03-03] MEDS: Gabapentin 300 MG Capsule PO (15:24)
[2021-03-03] MEDS: Dicyclomine 10 MG Capsule 20 MG PO (15:24)
[2021-03-03] MEDS: Ibuprofen 600 MG Tablet PO (15:24)
[2021-03-03 20:30] VITALS: BP 102/57; PULSE 58; RESP 16; TEMP 36.6; O2SAT 99
[2021-03-03] MEDS: traZODone 100 MG Tablet PO (20:31)
[2021-03-03] MEDS: hydrOXYzine PAM 25 MG Capsule 50 MG PO (20:32)
[2021-03-04 04:10] VITALS: BP 109/72; PULSE 57; RESP 16; TEMP 36.6; O2SAT 99
[2021-03-04] MEDS: Buprenorphine HCl 2 MG TAB.SUBL SL ×2 (08:42→16:34)
[2021-03-04 08:46] VITALS: BP 117/70; PULSE 50; RESP 16; TEMP 36.6; O2SAT 97
--- NOTE | 2021-03-04 10:41 | PCM.PN.HOSP ---
Subjective Subjective Seen and examined. Patient symptom complex of withdrawal including nausea, hyperactivity, restlessness is improved. Objective Data Objective Data Vital Signs: Vital Signs Temp Pulse Resp BP Pulse Ox 97.8 F 50 L 16 117/70 97 03/04/21 08:46 03/04/21 08:46 03/04/21 08:46 03/04/21 08:46 03/04/21 08:46 Oxygen Delivery Method Room Air Weight: 250 lb 0.067 oz Body Mass Index (BMI) 32.1 Intake & Output: Intake and Output for Last 24 Hours 03/02/21 03/03/21 03/04/21 23:59 23:59 23:59 Intake Total 800 / 800 Balance 800 / 800 Lab / Micro Data Result Diagrams: 03/03/21 08:20 03/03/21 08:20 Physical Exam Narrative Physical exam General: Alert, Oriented x3, Cooperative HEENT: Atraumatic, PERRLA, EOMI, Normocephalic Oral: No Gingival or Mucosal Lesions/ Ulcerations Neck: Supple, No JVD, Negative Carotid Bruits Lungs: Air entry equal in bilateral lung bases. No crepitation/rhonchi Cardiovascular: Regular rate, Regular Rhythm, Normal S1, Normal S2, No murmurs Abdomen: Bowel Sounds Present, Soft, Non Tender, Non-Distended : No renal angle tenderness. No suprapubic tenderness. Extremities: No edema, Capillary Refill Less than 3 Seconds Skin: No rashes, No breakdown Musculoskeletal: No Tenderness to Palpation of Joints or Extremities. Decreased muscle bulk of extremities. Neurological: Cranial nerves II-XII grossly intact, Deep Tendon Reflexes 2+/4 and Symmetrical, Neuro grossly intact Psych/Mental Status: Normal Affect, Appropriate. Assessment & Plan Assessment/Plan (1) Acute opioid withdrawal syndrome: PLAN: 1. Acute opioid withdrawal syndrome with chronic opioid use and dependence: Patient uses 2 to 3 g of IV Dilaudid along with IV fentanyl and methamphetamine. On opioid order set with buprenorphine and other supportive medications. See INR monitoring. Discussed with the nursing staff. U tox screen positive for cannabinoids and amphetamine. 03/04: Withdrawal symptoms are improving. Continue medication regimen. 2. Chronic cigarette smoker with nicotine dependence: Patient is smokes at least 1 pack cigarettes since age of 14. Smoking cessation advised. On nicotine patch 3. Anxiety and depression: On hydroxyzine and trazodone as needed while inpatient. Will need outpatient psychiatric evaluation. VTE prophylaxis on Lovenox 40 subcu daily. Discontinue if platelet count drops less than 50,000 or hemoglobin less than 8 g%
--- NOTE | 2021-03-04 10:43 | ADDICTION ---
This public relations writer met with PT to finalize d/c plan. PT was informed that there is no bed availability at [facility] ([facility] residential). This public relations writer offered to assist PT in coordinating with other residential facilities, PT declined. This public relations writer provided contact information for agencies in the area to assist PT with follow up for treatment. PT thanked this public relations writer and went back to sleep.
[2021-03-04] MEDS: cloNIDine HCl 0.1 MG Tablet PO (14:00)
[2021-03-04 15:04] VITALS: BP 123/64; PULSE 57; RESP 16; TEMP 36.6; O2SAT 97
--- NOTE | 2021-03-04 15:53 | CHAPLAIN ---
Type of Pastoral Visit ___ Initial Visit _x__ Follow-up Visit ___ On-call Visit ___ General Patient Visit ___ Spiritual Assessment ___ Family Conference ___ Bereavement ___ Rapid Response ___ Code Blue ___ Other (describe below) Pastoral Care Referral From _x__ Patient ___ Family ___ Nurse ___ Physician ___ Lesson Instructor ___ Donation Worker ___ Other (describe below) Sacrament/Intervention _x__ Active listening ___ Anointing ___ Restorationism ___ Bereavement ___ Communion ___ Ainsley exploration ___ ___ Life review _x__ Prayer ___ Reconciliation ___ Sacrament of Sick _x__ Supportive presence ___ Wedding ___ Other (describe below) Pastoral Comments patient states he is more alert and feeling some better today although he was drozzy during the visit; pt says that he talked with Jed, peer support, of [facility] and he is hopeful to get into [facility] sooner or later for residential treatment; pt requests that this fiber drier operator pray for him and then come back tomorrow to talk more
[2021-03-04] MEDS: traZODone 100 MG Tablet PO (20:42)
[2021-03-04] MEDS: hydrOXYzine PAM 25 MG Capsule 50 MG PO (20:42)
[2021-03-04 20:46] VITALS: BP 113/69; PULSE 67; RESP 16; TEMP 36.5; O2SAT 99
[2021-03-05] MEDS: Buprenorphine HCl 2 MG TAB.SUBL SL ×3 (00:14→21:08)
[2021-03-05] MEDS: Ibuprofen 600 MG Tablet PO ×2 (05:28→21:07)
[2021-03-05 05:30] VITALS: BP 114/61; PULSE 63; RESP 16; TEMP 36.8; O2SAT 95
[2021-03-05 08:46] VITALS: BP 110/54; PULSE 65; RESP 18; TEMP 36.7; O2SAT 97
--- NOTE | 2021-03-05 11:52 | PCM.PN.HOSP ---
Subjective Subjective Patient is feeling better. No tremors. No seizure or hallucinations. Objective Data Objective Data Vital Signs: Vital Signs Temp Pulse Resp BP Pulse Ox 98.0 F 65 18 110/54 L 97 03/05/21 08:46 03/05/21 08:46 03/05/21 08:46 03/05/21 08:46 03/05/21 08:46 Oxygen Delivery Method Room Air Weight: 250 lb 0.067 oz Body Mass Index (BMI) 32.1 Intake & Output: Intake and Output for Last 24 Hours 03/03/21 03/04/21 03/05/21 23:59 23:59 23:59 Intake Total 800 / 800 Balance 800 / 800 Lab / Micro Data Result Diagrams: 03/03/21 08:20 03/03/21 08:20 Physical Exam Narrative Physical exam General: Alert, Oriented x3, Cooperative HEENT: Atraumatic, PERRLA, EOMI, Normocephalic Oral: No Gingival or Mucosal Lesions/ Ulcerations Neck: Supple, No JVD, Negative Carotid Bruits Lungs: Air entry equal in bilateral lung bases. No crepitation/rhonchi Cardiovascular: Regular rate, Regular Rhythm, Normal S1, Normal S2, No murmurs Abdomen: Bowel Sounds Present, Soft, Non Tender, Non-Distended : No renal angle tenderness. No suprapubic tenderness. Extremities: No edema, Capillary Refill Less than 3 Seconds Skin: No rashes, No breakdown Musculoskeletal: No Tenderness to Palpation of Joints or Extremities. Neurological: Cranial nerves II-XII grossly intact, Deep Tendon Reflexes 2+/4 and Symmetrical, Neuro grossly intact Psych/Mental Status: Normal Affect, Appropriate. Assessment & Plan Assessment/Plan (1) Acute opioid withdrawal syndrome: PLAN: 1. Acute opioid withdrawal syndrome with chronic opioid use and dependence: Patient uses 2 to 3 g of IV Dilaudid along with IV fentanyl and methamphetamine. On opioid order set with buprenorphine and other supportive medications. See INR monitoring. Discussed with the nursing staff. U tox screen positive for cannabinoids and amphetamine. 03/04: Withdrawal symptoms are improving. Continue medication regimen. 03/05: Patient is improving. Discharge tomorrow a.m. 2. Chronic cigarette smoker with nicotine dependence: Patient is smokes at least 1 pack cigarettes since age of 14. Smoking cessation advised. On nicotine patch 3. Anxiety and depression: On hydroxyzine and trazodone as needed while inpatient. Will need outpatient psychiatric evaluation. VTE prophylaxis on Lovenox 40 subcu daily. Discontinue if platelet count drops less than 50,000 or hemoglobin less than 8 g% Charges/Coding Visit Charges Inpatient E&M: 94628 Subs Hosp L2
[2021-03-05 15:00] VITALS: BP 114/67; PULSE 69; RESP 18; TEMP 36.7; O2SAT 96
[2021-03-05] MEDS: Gabapentin 300 MG Capsule PO (16:04)
[2021-03-05 20:57] VITALS: BP 113/81; PULSE 63; RESP 16; TEMP 36; O2SAT 97
[2021-03-05] MEDS: Senna Tablet 2 TABLET PO (21:07)
[2021-03-05] MEDS: traZODone 100 MG Tablet PO (21:08)
[2021-03-06 06:18] VITALS: BP 101/63; PULSE 60; RESP 16; TEMP 36.5; O2SAT 96
[2021-03-06 07:53] VITALS: BP 95/69; PULSE 98; RESP 16; TEMP 36.6; O2SAT 97
--- NOTE | 2021-03-06 10:03 | PCM.DC ---
Discharge Instructions Diet Discharge Diet: No restrictions Activity Discharge Activity: Return to Normal Activity Follow Up Care Test Results: Test results from this visit will be discussed in further detail at your follow-up appointment, if applicable. Discharge Plan Admission Admit Date/Time: 03/03/21 01:07 Attending Provider: Stephane Llanes Primary Care Provider: Arianna Segura Discharge Orders/Prescriptions Prescriptions: New acetaminophen 500 mg Tablet 500 mg PO Q4H PRN PRN (Reason: Temp > 100.4 F) Qty: 0 RF: 0 Referrals / Follow Up: Arianna Segura PA [Primary Care Provider] - Disposition Disposition (needs filled in before D/C Order can be placed): Home, Self Care
--- NOTE | 2021-03-06 10:07 | PCM.DC.SUM ---
Providers Date of Admission: 03/03/21 Primary Care Physician: ISIDRO Kelley Reason For Visit: OPIATE ADDICTION / WITHDRAWAL Diagnosis Discharge Diagnosis (1) Acute opioid withdrawal syndrome: Status: Acute Medications at Discharge Home Medications acetaminophen 500 mg PO Q4H PRN PRN #0 tab 03/06/21 Hospital Course Operations None Procedures None Summary of Care Provided Minutes Spent on Discharge: 26 Hospital Course: 28-year-old male on presents requesting opiate WD treatment. Pt uses hydromorphone. He was initiated on Buprenorphine taper. Course was uncomplicated. Pt will be discharged today in stable condition. He admits to me that he does not have a phone. DW RN, phone will be provided so he can make his appointments. Physical Exam Const alert Resp normal respiratory effort Cardio regular rate, regular rhythm, S1 normal heart sound and S2 normal heart sound GI normal to inspection, nondistended, normoactive bowel sounds, non-tender and non-distended Neuro Sensorium / Orientation: awake and alert Weight / BMI Weight Weight: 113.4 kg Body Mass Index (BMI) 32.1 ABG / Lab / Microbiology Data Result Diagrams: 03/03/21 08:20 03/03/21 08:20 D/C Instructions Discharge Diet: No restrictions Meaningful Use Info Meaningful Use Diagnoses (Choose all that apply): None applicable Discharge Plan Admission Admit Date/Time: 03/03/21 01:07 Attending Provider: Stephane Llanes Primary Care Provider: Arianna Segura Discharge Orders/Prescriptions Prescriptions: New acetaminophen 500 mg Tablet 500 mg PO Q4H PRN PRN (Reason: Temp > 100.4 F) Qty: 0 RF: 0 Referrals / Follow Up: Arianna Segura PA [Primary Care Provider] - Disposition Disposition (needs filled in before D/C Order can be placed): Home, Self Care Charges/Coding Visit Charges Inpatient E&M: 79838 Disch Hosp
== END 2021-03-06 10:10 | disposition home or self-care (01) | DRG 773 ==
LOC: ED 03-03 00:56 → MS3 03-03 01:11
PROVIDERS: Internal Medicine; Admitting Provider Family Medicine; Emergency Provider Emergency Medicine; PCP Physician Assistant Medical
DX: F11.23 Opioid dependence with withdrawal (principal); G89.29 Other chronic pain; F32.9 Major depressive disorder, single episode, unspecified; F41.9 Anxiety disorder, unspecified; F17.210 Nicotine dependence, cigarettes, uncomplicated
CPT/HCPCS: 36415; 80053; 80307; 83735; 84100; 85025; 99283; 99406